=== PATIENT | female | born 1995 | race Caucasian/White ===

== ENCOUNTER 2017-03-12 01:05 | Emergency (ER) | payer OTHER ==
--- NOTE | 2017-03-12 02:04 | ED Physician Documentation ---
PD HPI CHEST PAIN - Stated complaint Stated Complaint: CHEST/L ARM PX - Chief complaint Chief Complaint: Cardiac - History obtained from History obtained from: Patient - History of Present Illness Timing - onset: How many minutes ago (90) Timing - onset during: Rest Timing - duration: Hours (1) Timing - details: Abrupt onset, Now resolved Pain level max: 4 Pain level now: 0 Quality: Pain Location: Substernal Radiation: Left upper extremity Improved by: Nothing Worsened by: No: Exertion, Inspiration, Eating, Movement, Palpation, Position Associated symptoms: No: Shortness of air, Diaphoresis, Nausea, Vomiting, Feeling faint / dizzy, General Weakness, Palpitations, Cough Similar symptoms before: Has not had sx before Recently seen: Not recently seen Review of Systems Constitutional: reports: Reviewed and negative Cardiac: reports: Chest pain / pressure. denies: Palpitations, Pedal edema, Calf pain Respiratory: reports: Reviewed and negative GI: reports: Reviewed and negative PD PAST MEDICAL HISTORY - Past Medical History Past Medical History: No - Past Surgical History Past Surgical History: No - Present Medications Home Medications: Ambulatory Orders Medication Instructions Recorded Confirmed Control 03/12/17 Paroxetine HCl [Paxil] 20 mg PO DAILY 03/12/17 03/12/17 - Allergies Allergies/Adverse Reactions: Allergies Allergy/AdvReac Type Severity Reaction Status Date / Time No Known Drug Allergies Allergy Verified 03/12/17 01:11 - Living Situation Living Arrangement: reports: At home PD ED PE NORMAL - Vitals Vital signs reviewed: Yes - General General: Alert and oriented X 3, No acute distress, Well developed/nourished - Cardiac Cardiac: RRR, No murmur, No gallop, No rub - Respiratory Respiratory: No respiratory distress, Clear bilaterally - Derm Derm: Normal color, Warm and dry - Extremities Extremities: No edema Results - Vitals Vitals: Vital Signs - 24 hr 03/12/17 03/12/17 03/12/17 01:09 02:27 03:26 Temperature 36.4 C L 36.5 C Heart Rate 86 61 60 Respiratory 18 15 18 Rate Blood Pressure 132/95 H 117/69 120/75 O2 Saturation 98 98 98 Oxygen O2 Source Room air - EKG (time done) No standard instances Rate: Rate (enter#) (73) Rhythm: NSR [place]: Normal Intervals: Normal NH QRS: Normal Ischemia: Normal ST segments - Labs Labs: Laboratory Tests 03/12/17 03/12/17 02:32 02:32 WBC 5.2 RBC 4.19 L Hgb 13.3 Hct 37.6 MCV 89.6 MCH 31.8 H MCHC 35.5 RDW 13.3 Plt Count 211 MPV 8.6 Neut # 2.6 Lymph # 1.6 Sunflower # 0.8 Eos # 0.1 Baso # 0.0 Absolute Nucleated RBC 0.00 Nucleated RBCs 0.0 Sodium 137 Potassium 3.4 L Chloride 104 Carbon Dioxide 26 Anion Gap 7.0 BUN 8 Creatinine 0.6 Estimated GFR (MDRD) 129 Glucose 106 H Calcium 8.6 PD MEDICAL DECISION MAKING - ED course Complexity details: reviewed results, re-evaluated patient, considered differential, d/w patient Departure - Departure Disposition: 01 Home, Self Care Clinical Impression: Chest pain, Palpitations Condition: Good Instructions: ED Chest Pain Atypical Unkn Cause, ED Palpitations Follow-Up: DEEPAK Singh [Provider Group] Discharge Date/Time: 03/12/17 03:43
[2017-03-12 02:46] LABS: BASOPHILS % (AUTO) 0.3 %; EOSINOPHILS # (AUTO) 0.1 10^3/uL (0.0-0.7); EOSINOPHILS % (AUTO) 2.5 %; HCT - HEMATOCRIT 37.6 % (37.0-47.0); HGB - HEMOGLOBIN 13.3 g/dL (12.0-16.0); LYMPHOCYTES # (AUTO) 1.6 10^3/uL (1.5-3.5); LYMPHOCYTES % (AUTO) 31.2 %; MEAN CORPUSCULAR HEMOGLOBIN 31.8 pg (27.0-31.0); MEAN CORPUSCULAR HGB CONC 35.5 g/dL (32.0-36.0); MEAN CORPUSCULAR VOLUME 89.6 fL (81.0-99.0); MEAN PLATELET VOLUME 8.6 fL (7.9-10.8); MONOCYTES # (AUTO) 0.8 10^3/uL (0.0-1.0); MONOCYTES % (AUTO) 15.3 %; NEUTROPHILS # (AUTO) 2.6 10^3/uL (1.5-6.6); NEUTROPHILS % (AUTO) 50.7 %; RED BLOOD COUNT 4.19 10^6/uL (4.20-5.40); RED CELL DISTRIBUTION WIDTH 13.3 % (12.0-15.0); UNCORRECTED WHITE BLOOD COUNT 5.2 x10^3/uL; WHITE BLOOD COUNT 5.2 x10^3/uL (4.8-10.8)
[2017-03-12 02:50] LABS: CALCIUM 8.6 mg/dL (8.5-10.3); CREATININE 0.6 mg/dL (0.4-1.0); POTASSIUM 3.4 mmol/L (3.5-5.0)
[2017-03-12 03:27] VITALS: BP 120/75
[2017-03-12] MEDS ORDERED: POTASSIUM BICARB 25 MEQ TABLET PO STA (03:33)
[2017-03-12] MEDS ORDERED: POTASSIUM BICARB 25 MEQ TABLET PO ONE (03:39)
== END 2017-03-12 03:43 | disposition home or self-care (01) ==
LOC: ED 01:05
DX: R07.89 Other chest pain (principal); R00.2 Palpitations
CPT/HCPCS: 36415; 80048; 85025; 93005; 93010; 99283; 99284; A9270

== ENCOUNTER 2017-03-14 13:49 | Emergency (ER) | payer OTHER ==
[2017-03-14] MEDS ORDERED: HYDROmorphone 1 MG/ML SYRINGE IVP STA (14:11)
[2017-03-14] MEDS ORDERED: ONDANSETRON 4 MG/2 ML VIAL IVP STA (14:11)
[2017-03-14] MEDS ORDERED: HYDROmorphone 1 MG/ML SYRINGE ONE (14:39)
[2017-03-14] MEDS ORDERED: ONDANSETRON 4 MG/2 ML VIAL ONE (14:40)
[2017-03-14] MEDS ORDERED: IOPAMIDOL-300 100 ML VIAL IVP ONE (15:29)
== END 2017-03-14 16:51 | disposition home or self-care (01) ==
DX: R10.30 Lower abdominal pain, unspecified (principal); Z98.890 Other specified postprocedural states
CPT/HCPCS: 74177; 80053; 81001; 81025; 83690; 85025; 96374; 96375; 99283; 99284; J1170; Q9967

== ENCOUNTER 2017-07-18 12:43 | Outpatient (CLI) | payer OTHER ==
--- NOTE | 2017-07-18 13:55 | MRI Report ---
EXAM: LEFT KNEE MRI WITHOUT CONTRAST EXAM DATE: 07/18/2017 01:26 PM. CLINICAL HISTORY: Left knee pain for 3 years COMPARISON: 10/23/2015. TECHNIQUE: Multiplanar, multisequence T1-weighted and fluid-sensitive sequences of the knee without c ontrast. Other: None. FINDINGS: Bones: No fractures or subluxations. No marrow edema. No bone lesions. Articular Cartilage: Unremarkable. Medial Meniscus: The medial meniscus is intact. Lateral Meniscus: The lateral meniscus is intact. Cruciate Ligaments: The anterior and posterior cruciate ligaments are intact. Collateral Ligaments: The medial collateral and lateral collateral ligamentous structures are intact. Tendons: The quadriceps, patellar, semimembranosus, and popliteus tendons are unremarkable. Musculature: No edema or fatty atrophy. Other: No effusion. No popliteal cyst. No loose bodies. The medial and lateral retinacula are intact . The subcutaneous tissues and fat pads are unremarkable. IMPRESSION: No MRI abnormalities in the knee. [facility]CUL[facility] SE[facility] Referring Provider Line: [phone] SITE ID: [id number]
== END 2017-07-18 12:44 | disposition home or self-care (01) ==
LOC: DI 12:43
PROVIDERS: ATTEND Orthopaedic Surgery
DX: M25.562 Pain in left knee (principal)

== ENCOUNTER 2018-01-11 19:07 | Emergency (ER) | payer OTHER ==
[2018-01-11 19:23] VITALS: BP 128/90
--- NOTE | 2018-01-11 20:59 | ED Physician Documentation ---
History of Present Illness - Stated complaint Stated Complaint: LEG PX - Chief complaint Chief Complaint: Ext Problem - History obtained from History obtained from: Patient - History of Present Illness Timing: How many weeks ago (2) Pain level max: 10 Pain level now: 9 Improved by: rest Worsened by: weight-bearing/ambulation - Additonal information Additional information: c/o worsening of BLE pain she says are c/w previous "zeng splints" (per patient) . Denies recent trauma (h/o injury 2 years ago), but c/o 2 weeks of gradually worsening bilateral zeng (anterior tibial) pain, gradually spreading to involve both knees and hips with episodic "locking" of knees and hips. Has appointment with [facility] medical 01/18 but pain was inadequately controlled with ibuprofen today Review of Systems Skin: denies: Rash Musculoskeletal: reports: Extremity pain, Joint pain, Pain with weight bearing. denies: Neck pain, Extremity swelling, Joint swelling Neurologic: denies: Focal weakness, Numbness PD PAST MEDICAL HISTORY - Past Medical History Past Medical History: Yes GI: None TEAM ASSISTANT: Endometriosis : None Psych: Anxiety Musculoskeletal: Other - Past Surgical History Past Surgical History: Yes General: Colonoscopy /TEAM ASSISTANT: Endometrial ablation - Present Medications Home Medications: Ambulatory Orders Medication Instructions Recorded Confirmed HYDROcod/ACETAM 5/325 [[place] 5/325] 1 - 2 ea PO Q6H PRN #15 tablet 01/11/18 Sertraline HCl [Zoloft] 1 tab PO DAILY 01/11/18 01/11/18 predniSONE [Prednisone] 40 mg PO DAILY #6 tablet 01/11/18 - Allergies Allergies/Adverse Reactions: Allergies Allergy/AdvReac Type Severity Reaction Status Date / Time No Known Drug Allergies Allergy Verified 01/11/18 19:23 - Social History Does the pt smoke?: No Smoking Status: Never smoker Does the pt drink ETOH?: No Does the pt have substance abuse?: No - Immunizations Immunizations are current?: Yes - POLST Patient has POLST: No PD ED PE NORMAL - Vitals Vital signs reviewed: Yes - General General: Alert and oriented X 3, No acute distress, Well developed/nourished - Derm Derm: Normal color, Warm and dry, No rash - Extremities Extremities: No deformity, No tenderness to palpate, Normal ROM s pain, No edema Results - Vitals Vitals: Vital Signs - 24 hr 01/11/18 19:20 Temperature 36.7 C Heart Rate 72 Respiratory 16 Rate Blood Pressure 128/90 H O2 Saturation 97 Oxygen O2 Source Room air PD MEDICAL DECISION MAKING - ED course Complexity details: considered differential, d/w patient Departure - Departure Disposition: 01 Home, Self Care Clinical Impression: Pain of lower extremity Qualifiers: Laterality: bilateral Qualified Code(s): M79.604 - Pain in right leg Condition: Good Instructions: Splints Zeng Follow-Up: SANDRA MORALES MD [Primary Care Provider] - (Call to arrange for next available appointment) Prescriptions: HYDROcod/ACETAM 5/325 [[place] 5/325] 1 - 2 ea PO Q6H PRN #15 tablet PRN Reason: Pain predniSONE [Prednisone] 40 mg PO DAILY #6 tablet Comments: You can continue to take ibuprofen while taking the steroid (prednisone), but in reduced doses (400 mg by mouth every 6 hours). When you have completed the prednisone, you can increase the ibuprofen to 600mg-800mg by mouth every 6 hours as needed. You can take the vicodin (hydrocodone/aceteminophen) every 6 hours as needed for severe pain, but do not drive or work for a minimum of six hours after taking this medication. Do not take any tylenol/acetaminophen (or products that contain this medication) while taking the hydrocodone/ acetaminophen. Discharge Date/Time: 01/11/18 21:29
[2018-01-11] MEDS ORDERED: predniSONE 20 MG TABLET PO STA (21:15)
[2018-01-11] MEDS ORDERED: HYDROcod/ACET 5/325 Prepack 6 PO STA (21:17)
== END 2018-01-11 21:29 | disposition home or self-care (01) ==
LOC: ED 19:07
DX: M79.604 Pain in right leg (principal)
CPT/HCPCS: 99283; J7512

== ENCOUNTER 2018-04-09 19:03 | Emergency (ER) | payer OTHER ==
[2018-04-09 19:32] LABS: BILIRUBIN,URINE NEGATIVE (NEGATIVE); GLUCOSE, URINE (UA) NEGATIVE (NEGATIVE); KETONES,URINE (UA) NEGATIVE (NEGATIVE); LEUKOCYTE ESTERASE, URINE NEGATIVE (NEGATIVE); NITRITE,URINE NEGATIVE (NEGATIVE); OCCULT BLOOD,URINE NEGATIVE (NEGATIVE); PROTEIN,URINE NEGATIVE (NEGATIVE); UROBILINOGEN,URINE 0.2 (NORMAL) E.U./dL (NORMAL)
[2018-04-09 19:36] LABS: HCG UR QUAL NEGATIVE
[2018-04-09 19:39] LABS: AMORPHOUS SEDIMENT,UR Marked /LPF; BACTERIA,URINE None Seen /HPF (None Seen); CLARITY,URINE CLOUDY (CLEAR); RBC,URINE None Seen /HPF (0-5); SQUAMOUS EPITHELIAL CELL,UR NONE SEEN (<= Few)
[2018-04-09] MEDS ORDERED: LORazepam 0.5 MG TABLET PO STA (19:46)
--- NOTE | 2018-04-09 19:48 | ED Physician Documentation ---
PD HPI ABD PAIN - Stated complaint Stated Complaint: FEMALE - Chief complaint Chief Complaint: Abd Pain - History obtained from History obtained from: Patient - History of Present Illness Timing - onset: Other (She turned 23 a few nights ago and did drink heavily. About that same day she developed pelvic pain. She has a history of endometriosis. Its lower pelvic pain that does not lateralize and she feels bloated. She had a Mirena IUD placed in November. Starting today she has had 2 episodes of a large volume of white to pink discharge. She has had 2 partners in the last couple of months.) Review of Systems Constitutional: denies: Fever, Chills GI: reports: Abdominal Pain, Nausea ("from anxiety"). 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 : None Psych: Anxiety Musculoskeletal: Other - Past Surgical History Past Surgical History: Yes General: Colonoscopy /SKILLS AUDITOR: Endometrial ablation, Other - Present Medications Home Medications: Ambulatory Orders Medication Instructions Recorded Confirmed HYDROcod/ACETAM 5/325 [[place] 5/325] 1 - 2 ea PO Q6H PRN #15 tablet 01/11/18 Sertraline HCl [Zoloft] 1 tab PO DAILY 01/11/18 01/11/18 predniSONE [Prednisone] 40 mg PO DAILY #6 tablet 01/11/18 - Allergies Allergies/Adverse Reactions: Allergies Allergy/AdvReac Type Severity Reaction Status Date / Time No Known Drug Allergies Allergy Verified 04/09/18 19:20 - Social History Does the pt smoke?: No Smoking Status: Never smoker Does the pt drink ETOH?: No Does the pt have substance abuse?: No - Immunizations Immunizations are current?: Yes - POLST Patient has POLST: No PD ED PE NORMAL - Vitals Vital signs reviewed: Yes - General General: Alert and oriented X 3, No acute distress - Abdomen Abdomen: Normal bowel sounds, Soft, Non tender - Female 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 YELLOW Urine Clarity CLOUDY Urine pH 7.0 Ur Specific [place] 1.020 1.020 Urine Protein NEGATIVE Urine Glucose (UA) NEGATIVE Urine Ketones NEGATIVE Urine Occult Blood NEGATIVE Urine Nitrite NEGATIVE Urine Bilirubin NEGATIVE Urine Urobilinogen 0.2 (NORMAL) Ur Leukocyte Esterase NEGATIVE Urine RBC None Seen Urine WBC 0-3 Ur Squamous Epith Cells NONE SEEN Amorphous Sediment Marked Urine Bacteria None Seen Ur Microscopic Review INDICATED Urine Culture Comments NOT INDICATED Urine HCG, Qual NEGATIVE PD MEDICAL DECISION MAKING - ED course ED course: 23-year-old woman with vaginal discharge and pelvic pain but no pelvic tenderness. Initial swabs are negative. We discussed potentially presumptive treatment for STDs there is no evidence of PID and after discussion we will wait. Departure - Departure Disposition: 01 Home, Self Care Clinical Impression: Vaginal discharge Condition: Good Record reviewed to determine appropriate education?: Yes Instructions: ED Pelvic Pain [facility] Comments: We should call in 2-3 days if STD tests are positive. If not better follow-up with your cob sawyer. Return for new or worsening symptoms.
[2018-04-09 21:02] VITALS: BP 105/70
== END 2018-04-09 21:03 | disposition home or self-care (01) ==
LOC: ED 19:03
DX: N89.8 Other specified noninflammatory disorders of vagina (principal); Z97.5 Presence of (intrauterine) contraceptive device
CPT/HCPCS: 81001; 81025; 87210; 87491; 87591; 99283; A9270; 81003; 87086

== ENCOUNTER 2018-04-11 17:24 | Emergency (ER) | payer OTHER ==
[2018-04-11 18:35] LABS: BILIRUBIN,URINE NEGATIVE (NEGATIVE); GLUCOSE, URINE (UA) NEGATIVE (NEGATIVE); KETONES,URINE (UA) NEGATIVE (NEGATIVE); LEUKOCYTE ESTERASE, URINE NEGATIVE (NEGATIVE); NITRITE,URINE NEGATIVE (NEGATIVE); OCCULT BLOOD,URINE NEGATIVE (NEGATIVE); PROTEIN,URINE NEGATIVE (NEGATIVE); UROBILINOGEN,URINE 1 (NORMAL) E.U./dL (NORMAL)
--- NOTE | 2018-04-11 18:39 | ED Physician Documentation ---
PD HPI ABD PAIN - Stated complaint Stated Complaint: ABD PX - Chief complaint Chief Complaint: Abd Pain - History obtained from History obtained from: Patient - History of Present Illness Timing - onset: Other (She was seen by me a couple of nights ago for pelvic pain and vaginal discharge, nothing really came of the swabs and in the interim her gonorrhea and chlamydia test came back negative. She continues to have vaginal discharge and migratory pelvic pain. [place] was referred for a pelvic ultrasound but it sounds like the delay would be too much. She does have pinkish vaginal discharge now whereas it was playing white the other night.) Review of Systems Constitutional: denies: Fever, Chills GI: reports: Abdominal Pain. 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 Psych: Anxiety Musculoskeletal: Other - Past Surgical History Past Surgical History: Yes General: Colonoscopy /AGENCY RECRUITER: Endometrial ablation, Other - Present Medications Home Medications: Ambulatory Orders Medication Instructions Recorded Confirmed Sertraline HCl [Zoloft] 1 tab PO DAILY 01/11/18 01/11/18 Fluconazole [Diflucan] 150 mg PO ONCE #1 tablet 04/11/18 Metronidazole [Flagyl] 500 mg PO BID #14 tablet 04/11/18 - Allergies Allergies/Adverse Reactions: Allergies Allergy/AdvReac Type Severity Reaction Status Date / Time No Known Drug Allergies Allergy Verified 04/09/18 19:20 - Social History Does the pt smoke?: No Smoking Status: Never smoker Does the pt drink ETOH?: No Does the pt have substance abuse?: No - Immunizations Immunizations are current?: Yes - POLST Patient has POLST: No PD ED PE NORMAL - Vitals Vital signs reviewed: Yes - General General: Alert and oriented X 3, No acute distress - Abdomen Abdomen: Normal bowel sounds, Soft, Other (Mild lower abdominal tenderness) - Female Female : Deferred (As she had a pelvic exam 2 nights ago) - Neuro Neuro: Alert and oriented X 3, Normal speech Results - Vitals Vitals: Vital Signs - 24 hr 04/11/18 04/11/18 17:34 19:30 Temperature 36.6 C Heart Rate 65 62 Respiratory 16 18 Rate Blood Pressure 112/71 113/67 O2 Saturation 99 98 Oxygen O2 Source Room air - Labs Labs: Laboratory Tests 04/11/18 18:10 Urine Color LT. YELLOW Urine Clarity CLOUDY Urine pH 8.0 H Ur Specific [place] 1.020 Urine Protein NEGATIVE Urine Glucose (UA) NEGATIVE Urine Ketones NEGATIVE Urine Occult Blood NEGATIVE Urine Nitrite NEGATIVE Urine Bilirubin NEGATIVE Urine Urobilinogen 1 (NORMAL) Ur Leukocyte Esterase NEGATIVE Urine RBC None Seen Urine WBC 0-3 Ur Squamous Epith Cells NONE SEEN Amorphous Sediment Marked Urine Bacteria None Seen Ur Microscopic Review INDICATED Urine Culture Comments NOT INDICATED Urine HCG, Qual NEGATIVE - Rads (name of study) pelvic sono Radiology: See rad report (normal) PD MEDICAL DECISION MAKING - ED course ED course: 23-year-old with vaginitis of unclear etiology that has not improved with conservative treatment and referred for an outpatient Pelvic ultrasound that she has been unable to schedule in a timely manner. The ultrasound here was negative and we will trial some Diflucan and Flagyl for the vaginitis. Note made the gonorrhea and Chlamydia from a few days ago was negative. Departure - Departure Disposition: 01 Home, Self Care Clinical Impression: Pelvic pain, Vaginal discharge Condition: Good Record reviewed to determine appropriate education?: Yes Instructions: ED Vaginosis Bacterial Prescriptions: Fluconazole [Diflucan] 150 mg PO ONCE #1 tablet Metronidazole [Flagyl] 500 mg PO BID #14 tablet Comments: [place] return if worse. Discharge Date/Time: 04/11/18 21:05
[2018-04-11] MEDS ORDERED: HYDROcod/ACETAM 5/325 MG TABLET PO STA (18:54)
[2018-04-11 18:55] LABS: CLARITY,URINE CLOUDY (CLEAR); HCG UR QUAL NEGATIVE
[2018-04-11 18:56] LABS: AMORPHOUS SEDIMENT,UR Marked /LPF; BACTERIA,URINE None Seen /HPF (None Seen); RBC,URINE None Seen /HPF (0-5); SQUAMOUS EPITHELIAL CELL,UR NONE SEEN (<= Few)
[2018-04-11 20:06] VITALS: BP 113/67
--- NOTE | 2018-04-11 20:49 | Ultrasound Report ---
EXAM: PELVIC ULTRASOUND EXAM DATE: 04/11/2018 08:39 PM. CLINICAL HISTORY: Pelvic pain. COMPARISON: 03/14/2017 CT. TECHNIQUE: Realtime transabdominal pelvic scan performed to identify the uterus and adnexa and as an overview of other pelvic structures, followed by transvaginal scan to provide greater detail of the u terus and adnexa, with static image documentation. FINDINGS: Uterus: 8.2 x 3 x 5 cm, volume 67.2 cc. Anteverted position. Normal overall size and echotexture. Masses: None. Endometrium: 3 mm. No hypervascular nodules. Intrauterine device position centrally within the uterin e cavity. Cervix: Unremarkable. Right Ovary: 2 x 2.7 x 2.6 cm, volume 7.4 cc. Normal echotexture and blood flow. Left Ovary: 2.4 x 1.2 x 1.3 cm, volume 1.8 cc. Normal echotexture and blood flow. Free Fluid: None. Other: None. IMPRESSION: Normal pelvic ultrasound noting satisfactory IUD position. [facility] Referring Provider Line: [phone] SITE ID: [id number]
[2018-04-11] MEDS ORDERED: FLUCONAZOLE 100 MG TABLET PO STA (20:58)
[2018-04-11] MEDS ORDERED: metroNIDAZOLE 250 MG TABLET PO STA (20:58)
== END 2018-04-11 21:05 | disposition home or self-care (01) ==
LOC: ED 17:24
DX: R10.2 Pelvic and perineal pain (principal); N89.8 Other specified noninflammatory disorders of vagina
CPT/HCPCS: 76830; 76856; 81001; 81025; 93975; 99283; A9270; 81003; 87086

== ENCOUNTER 2018-04-24 10:55 | Emergency (ER) | payer OTHER ==
[2018-04-24] MEDS ORDERED: ACETAMINOPHEN 325 MG TABLET PO STA (11:53)
[2018-04-24] MEDS ORDERED: ONDANSETRON ODT 4 MG TABLET TL STA (11:53)
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
--- NOTE | 2018-04-24 12:48 | CT Report ---
Procedure Date: 04/24/2018 Accession Number: [id number] / [id number] Procedure: CT - Head W/O CPT Code: FULL RESULT: EXAM: CT HEAD EXAM DATE: 04/24/2018 12:20 PM. CLINICAL HISTORY: Head trauma. Right temporal contusion. Confusion. COMPARISON: None. TECHNIQUE: Multiaxial CT images were obtained from the foramen magnum to the vertex. Reformats: Coronal. IV contrast: None. In accordance with CT protocol optimization, one or more of the following dose reduction techniques were utilized for this exam: automated exposure control, adjustment of mA and/or KV based on patient size, or use of iterative reconstructive technique. FINDINGS: Parenchyma: No intraparenchymal hemorrhage. No evidence of mass, midline shift, or CT findings of acute infarction. Goel-white differentiation is distinct. Extraaxial Spaces: Normal for age. No subdural or epidural collections identified. Ventricles: Normal in size and position. Sinuses and Orbits: Imaged paranasal sinuses, orbits, and mastoids show no significant abnormality. Bones: No evidence of fracture or calvarial defect. Other: None. IMPRESSION: Normal head CT. [facility]
--- NOTE | 2018-04-24 12:51 | CT Report ---
Procedure Date: 04/24/2018 Accession Number: [id number] / [id number] Procedure: CT - Cervical Spine W/O CPT Code: FULL RESULT: EXAM: CT CERVICAL SPINE WITHOUT CONTRAST DATE: 04/24/2018 12:20 PM. HISTORY: Head injury neck pain. COMPARISONS: None. TECHNIQUE: Thin-section axial images were acquired of the cervical spine without contrast. Post-processing: Coronal and sagittal reformats. Other: None. In accordance with CT protocol optimization, one or more of the following dose reduction techniques were utilized for this exam: automated exposure control, adjustment of mA and/or KV based on patient size, or use of iterative reconstructive technique. FINDINGS: Alignment: No spondylolisthesis. Mild reversal of the normal cervical lordosis centered at C5. Bones: No fracture or bone lesion. Interspace Levels/Facets: Normal. Other: The paravertebral and prevertebral soft tissues are unremarkable. The lung apices are clear. IMPRESSION: Normal cervical spine CT. [facility]
[2018-04-24 13:30] VITALS: BP 108/60
== END 2018-04-24 13:30 | disposition home or self-care (01) ==
LOC: ED 10:55
DX: S06.0X1A Concussion with loss of consciousness of 30 minutes or less, initial encounter (principal); W20.8XXA Other cause of strike by thrown, projected or falling object, initial encounter; Y92.139 Unspecified place military base as the place of occurrence of the external cause; Y99.1 Military activity
CPT/HCPCS: 70450; 72125; 99283; 99284; A9270; Q0162

== ENCOUNTER 2018-05-29 21:42 | Emergency (ER) | payer OTHER ==
[2018-05-29 23:29] LABS: BILIRUBIN,URINE NEGATIVE (NEGATIVE); GLUCOSE, URINE (UA) NEGATIVE (NEGATIVE); KETONES,URINE (UA) NEGATIVE (NEGATIVE); LEUKOCYTE ESTERASE, URINE NEGATIVE (NEGATIVE); NITRITE,URINE NEGATIVE (NEGATIVE); OCCULT BLOOD,URINE NEGATIVE (NEGATIVE); PH,URINE 6.5 PH (5.0-7.5); PROTEIN,URINE NEGATIVE (NEGATIVE); UROBILINOGEN,URINE 0.2 (NORMAL) E.U./dL (NORMAL)
[2018-05-29 23:32] LABS: CLARITY,URINE CLEAR (CLEAR); HCG UR QUAL NEGATIVE
[2018-05-30] MEDS ORDERED: KETOROLAC 60 MG/2 ML VIAL IVP STA (00:20)
--- NOTE | 2018-05-30 00:24 | ED Physician Documentation ---
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 She states that at the time this started she was sitting on the couch watching television doing absolutely nothing and severe pain developed in the right lower quadrant with a throbbing-like sensation. She has had some nausea with this and is quite uncomfortable. She did have investigation with ultrasound for position of her IUD about 3 weeks ago and this is when she was notified of the 6 cm right ovarian cyst. Review of Systems Constitutional: denies: Fever, Chills, Myalgias Eyes: denies: Decreased vision Ears: denies: Ear pain Nose: denies: Congestion Throat: denies: Sore throat Cardiac: denies: Chest pain / pressure Respiratory: denies: Dyspnea, Cough GI: reports: Abdominal Pain, Nausea : reports: Discharge. denies: Dysuria, Frequency Skin: denies: Rash Musculoskeletal: denies: Neck pain, Back pain, Extremity pain Neurologic: denies: Generalized weakness, Focal weakness, Numbness PD PAST MEDICAL HISTORY - Past Medical History Past Medical History: Yes GI: None VOCATIONAL HORTICULTURE INSTRUCTOR: Endometriosis : None Psych: Anxiety Musculoskeletal: Other - Past Surgical History Past Surgical History: Yes General: Colonoscopy /VOCATIONAL HORTICULTURE INSTRUCTOR: Endometrial ablation, Other - Present Medications Home Medications: Ambulatory Orders Medication Instructions Recorded Confirmed Sertraline HCl [Zoloft] 1 tab PO DAILY 01/11/18 01/11/18 Iud 04/24/18 Ondansetron Odt [Zofran] 4 mg TL Q6H PRN #10 tablet 04/24/18 HYDROcod/ACETAM 5/325 [[place] 5/325] 1 - 2 ea PO Q6H PRN #15 tablet 05/30/18 - Allergies Allergies/Adverse Reactions: Allergies Allergy/AdvReac Type Severity Reaction Status Date / Time No Known Drug Allergies Allergy Verified 04/24/18 11:03 - Social History Does the pt smoke?: No Smoking Status: Never smoker Does the pt drink ETOH?: No Does the pt have substance abuse?: No - Immunizations Immunizations are current?: Yes - POLST Patient has POLST: No PD ED PE NORMAL - Vitals Vital signs reviewed: Yes (normal ) - General General: Alert and oriented X 3, Well developed/nourished, Other (The patient appears anxious and in pain ) - HEENT HEENT: Atraumatic, PERRL, EOMI - Neck Neck: Supple, no meningeal sign - Cardiac Cardiac: RRR, No murmur - Respiratory Respiratory: No respiratory distress, Clear bilaterally - Abdomen Abdomen: Soft, Other (RLQ tenderness without garding or rebound tenderness) - Back Back: No CVA TTP, No spinal TTP - Derm Derm: Normal color, Warm and dry, No rash - Extremities Extremities: No deformity, No edema - Neuro Neuro: Alert and oriented X 3, 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, No motor deficit, No sensory deficit, Normal speech Eye Opening: Spontaneous Motor: Obeys Commands Verbal: Oriented GCS Score: 15 - Psych Psych: Normal mood, Normal affect Results - Vitals Vitals: Vital Signs - 24 hr 05/29/18 05/30/18 05/30/18 21:59 01:53 03:00 Temperature 37.3 C 36.8 C 37.6 C H Heart Rate 72 62 70 Respiratory 18 16 16 Rate Blood Pressure 118/72 124/78 115/61 O2 Saturation 98 97 98 Oxygen O2 Source Room air - Labs Labs: Laboratory Tests 05/29/18 05/30/18 05/30/18 22:10 00:20 00:20 WBC 7.9 RBC 4.34 Hgb 13.7 Hct 39.8 MCV 91.8 MCH 31.5 H MCHC 34.3 RDW 14.3 Plt Count 222 MPV 8.3 Neut # (Auto) 4.4 Lymph # (Auto) 2.5 [place] # (Auto) 0.6 Eos # (Auto) 0.3 Baso # (Auto) 0.0 Absolute Nucleated RBC 0.00 Nucleated RBC % 0.0 Sodium 136 Potassium 3.9 Chloride 104 Carbon Dioxide 26 Anion Gap 6.0 BUN 12 Creatinine 0.6 Estimated GFR (MDRD) 126 Glucose 93 Calcium 9.3 Total Bilirubin 0.5 AST 18 ALT 20 Alkaline Phosphatase 55 Total Protein 7.0 Albumin 4.6 Globulin 2.4 Albumin/Globulin Ratio 1.9 Lipase 34 Urine Color YELLOW Urine Clarity CLEAR Urine pH 6.5 Ur Specific [place] 1.020 Urine Protein NEGATIVE Urine Glucose (UA) NEGATIVE Urine Ketones NEGATIVE Urine Occult Blood NEGATIVE Urine Nitrite NEGATIVE Urine Bilirubin NEGATIVE Urine Urobilinogen 0.2 (NORMAL) Ur Leukocyte Esterase NEGATIVE Ur Microscopic Review NOT INDICATED Urine Culture Comments NOT INDICATED Urine HCG, Qual NEGATIVE - Rads (name of study) pelvic ultrasound Radiology: Prelim report reviewed (Impression: 1. Small right ovarian cyst measuring 1.4 x 1.1 x 2.1 cm no torsion seen. IUD in expected position), EMP read indepedently, See rad report PD MEDICAL DECISION MAKING - ED course Complexity details: reviewed old records, reviewed results, re-evaluated patient , considered differential, d/w patient, d/w family ED course: 23-year-old female with acute right lower quadrant abdominal pain appears to have a small right ovarian cyst. She has improvement in her pain with the use of IV dilaudid and not with toradal. On initial evaluation there was concern for torsion by her presentation and this is effectively ruled out with the ultrasound. Appendicitis was considered but not likely based on the patient's history exam and lack of lab findings. She is treated for ovarian cyst. She has murina in place and the timing of her cycle is unknown. - Sepsis Event Vital Signs: Vital Signs - 24 hr 05/29/18 05/30/18 05/30/18 21:59 01:53 03:00 Temperature 37.3 C 36.8 C 37.6 C H Heart Rate 72 62 70 Respiratory 18 16 16 Rate Blood Pressure 118/72 124/78 115/61 O2 Saturation 98 97 98 Oxygen O2 Source Room air Departure - Departure Disposition: 01 Home, Self Care Clinical Impression: Ovarian cyst, right Condition: Stable Instructions: ED Cyst Ovarian Follow-Up: [facility] [Provider Group] Prescriptions: HYDROcod/ACETAM 5/325 [[place] 5/325] 1 - 2 ea PO Q6H PRN #15 tablet PRN Reason: Pain Discharge Date/Time: 05/30/18 03:16
[2018-05-30 00:34] LABS: BASOPHILS % (AUTO) 0.3 %; EOSINOPHILS # (AUTO) 0.3 10^3/uL (0.0-0.7); EOSINOPHILS % (AUTO) 4.4 %; HGB - HEMOGLOBIN 13.7 g/dL (12.0-16.0); LYMPHOCYTES # (AUTO) 2.5 10^3/uL (1.5-3.5); LYMPHOCYTES % (AUTO) 31.4 %; MEAN CORPUSCULAR HEMOGLOBIN 31.5 pg (27.0-31.0); MEAN CORPUSCULAR HGB CONC 34.3 g/dL (32.0-36.0); MEAN CORPUSCULAR VOLUME 91.8 fL (81.0-99.0); MEAN PLATELET VOLUME 8.3 fL (7.9-10.8); MONOCYTES # (AUTO) 0.6 10^3/uL (0.0-1.0); MONOCYTES % (AUTO) 7.3 %; NEUTROPHILS # (AUTO) 4.4 10^3/uL (1.5-6.6); NEUTROPHILS % (AUTO) 56.6 %; PLT - PLATELET COUNT 222 10^3/uL (130-450); RED BLOOD COUNT 4.34 10^6/uL (4.20-5.40); RED CELL DISTRIBUTION WIDTH 14.3 % (12.0-15.0); WHITE BLOOD COUNT 7.9 x10^3/uL (4.8-10.8)
[2018-05-30 00:47] LABS: ALBUMIN 4.6 g/dL (3.2-5.5); ALBUMIN/GLOBULIN RATIO 1.9 (1.0-2.2); BILIRUBIN,TOTAL 0.5 mg/dL (0.2-1.0); CALCIUM 9.3 mg/dL (8.5-10.3); CREATININE 0.6 mg/dL (0.4-1.0)
[2018-05-30] MEDS ORDERED: HYDROmorphone 1 MG/ML CARPUJECT IVP STA (01:52)
[2018-05-30] MEDS ORDERED: ONDANSETRON 4 MG/2 ML VIAL IVP STA (01:52)
--- NOTE | 2018-05-30 02:21 | Ultrasound Report ---
Procedure Date: 05/30/2018 Accession Number: [id number] / [id number] Procedure: US - Pelvic w/Transvaginal CPT Code: FULL RESULT: EXAM: PELVIC ULTRASOUND EXAM DATE: 05/30/2018 01:42 AM. CLINICAL HISTORY: R sided pain with 6cm cyst by history torsion?. COMPARISON: 04/11/2018. TECHNIQUE: Realtime transabdominal pelvic scan performed to identify the uterus and adnexa and as an overview of other pelvic structures, followed by transvaginal scan to provide greater detail of the uterus and adnexa, with static image documentation. FINDINGS: Uterus: 8.4 x 3.8 x 5.8 cm, volume 96 cc. Anteverted position. Normal overall size and echotexture. Masses: None. Endometrium: 5 mm. IUD in expected position. Cervix: Unremarkable. Right Ovary: 3.8 x 2.4 x 3.1 cm, volume 15 cc. Small cyst measuring 1.4 x 1.1 x 2.1 cm. Otherwise normal echotexture and blood flow. Left Ovary: 3.2 x 2.4 x 3.3 cm, volume 13 cc. Normal echotexture and blood flow. Free Fluid: None. Other: None. IMPRESSION: 1. Small right ovarian cyst measuring 1.4 x 1.1 x 2.1 cm. No torsion seen. 2. IUD in expected position. RADIA
[2018-05-30 03:01] VITALS: BP 115/61
[2018-05-30] MEDS ORDERED: HYDROcod/ACET 5/325 Prepack 4 PO STA (03:10)
== END 2018-05-30 03:16 | disposition home or self-care (01) ==
LOC: ED 21:42
DX: N83.201 Unspecified ovarian cyst, right side (principal); Z97.5 Presence of (intrauterine) contraceptive device
CPT/HCPCS: 36415; 76830; 76856; 80053; 81003; 81025; 83690; 85025; 96374; 96375; 99283; 99284; J1170; 81001; 87086

== ENCOUNTER 2018-08-05 22:25 | Emergency (ER) | payer OTHER ==
--- NOTE | 2018-08-05 22:47 | ED Physician Documentation ---
History of Present Illness - Stated complaint Stated Complaint: CHEST PAIN/POSS ALLERGIC REACTION - History obtained from History obtained from: Patient - History of Present Illness Timing: Enter time (21:00) Improved by: no ameliorating factors Worsened by: no apparent exacerbating factors or inciting event/exposure - Additonal information Additional information: c/o sudden onset of diffuse pruritis 9 PM tonight with rash on extremities. She took 50mg benadryl with improvement in rash but no relief from pruritis, subsequently developed chest tightness and shortness of breath. denies h/o similar symptoms Review of Systems Constitutional: denies: Fever, Chills, Sweats Cardiac: reports: Chest pain / pressure. denies: Palpitations, Pedal edema Respiratory: reports: Dyspnea. 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 : None Psych: Anxiety Musculoskeletal: Other Derm: Other Other Past Medical History: Acne - Past Surgical History Past Surgical History: Yes General: Colonoscopy /EDITOR MAGAZINE: Endometrial ablation, Other - Present Medications Home Medications: Ambulatory Orders Medication Instructions Recorded Confirmed Iud 04/24/18 LORazepam [Lorazepam] 1 mg PO TID PRN #14 tablet 08/05/18 Minocycline HCl 1 cap PO BID 08/05/18 08/05/18 Venlafaxine ER [Effexor ER] 1 cap PO BID 08/05/18 08/05/18 hydrOXYzine PAMOATE [Vistaril] 25 mg PO Q6H PRN #14 capsule 08/05/18 - Allergies Allergies/Adverse Reactions: Allergies Allergy/AdvReac Type Severity Reaction Status Date / Time No Known Drug Allergies Allergy Verified 08/05/18 22:39 - Social History Does the pt smoke?: No Smoking Status: Never smoker Does the pt drink ETOH?: No Does the pt have substance abuse?: No - Immunizations Immunizations are current?: Yes - POLST Patient has POLST: No PD ED PE NORMAL - Vitals Vital signs reviewed: Yes - General General: Alert and oriented X 3, Well developed/nourished, Other (appears anxious. occasionally scratches arms, legs. she is AAOx3, cooperative, and polite) - HEENT HEENT: PERRL, Moist mucous membranes - Cardiac Cardiac: RRR, No murmur - Respiratory Respiratory: No respiratory distress, Clear bilaterally - Derm Derm: Other (faint erythema RLE (distal pre-tibial surface) with sharp margin, 2-3 cm diameter. faint erythema LUE anterior mid-bicep region with no distinct margins) Results - Vitals Vitals: Vital Signs - 24 hr 08/05/18 08/05/18 22:25 23:26 Temperature 36.0 C L Heart Rate 83 67 Respiratory 16 17 Rate Blood Pressure 126/93 H 125/85 H O2 Saturation 100 100 Oxygen O2 Source Room air PD MEDICAL DECISION MAKING - ED course Complexity details: re-evaluated patient, considered differential, d/w patient ED course: given atarax and ativan PO and on reevaluation, she appears calm, comfortable, no longer scratching. She reports resolution of her itching and anxiety, reports mild drowsiness. - Sepsis Event Vital Signs: Vital Signs - 24 hr 08/05/18 08/05/18 22:25 23:26 Temperature 36.0 C L Heart Rate 83 67 Respiratory 16 17 Rate Blood Pressure 126/93 H 125/85 H O2 Saturation 100 100 Oxygen O2 Source Room air Departure - Departure Disposition: 01 Home, Self Care Clinical Impression: Allergic reaction, Anxiety Condition: Good Instructions: ED Allergic Reaction General Other, ED Stress React Follow-Up: [facility] [Provider Group] Prescriptions: hydrOXYzine PAMOATE [Vistaril] 25 mg PO Q6H PRN #14 capsule PRN Reason: Allergy Symptoms LORazepam [Lorazepam] 1 mg PO TID PRN #14 tablet PRN Reason: Anxiety Discharge Date/Time: 08/05/18 23:35
[2018-08-05] MEDS ORDERED: hydrOXYzine PAMOATE 25 MG CAPSULE PO STA (22:48)
[2018-08-05] MEDS ORDERED: LORazepam 0.5 MG TABLET PO STA (22:48)
[2018-08-05 23:27] VITALS: BP 125/85
== END 2018-08-05 23:35 | disposition home or self-care (01) ==
LOC: ED 22:25
DX: T78.40XA Allergy, unspecified, initial encounter (principal); F41.9 Anxiety disorder, unspecified; X58.XXXA Exposure to other specified factors, initial encounter
CPT/HCPCS: 99283; A9270

== ENCOUNTER 2018-10-01 17:07 | Emergency (ER) | payer OTHER ==
[2018-10-01] MEDS ORDERED: KETOROLAC 60 MG/2 ML VIAL IM STA (19:05)
[2018-10-01] MEDS ORDERED: diphenhydrAMINE INJ 50 MG/ML VIAL IM STA (19:05)
[2018-10-01] MEDS ORDERED: PROMETHAZINE 25 MG/1 ML VIAL IM STA (19:05)
--- NOTE | 2018-10-01 19:10 | ED Physician Documentation ---
History of Present Illness - Stated complaint Stated Complaint: MIGRAINE - Chief complaint Chief Complaint: General - History obtained from History obtained from: Patient, Friend - History of Present Illness Timing: Today Pain level max: 8 Pain level now: 8 Improved by: nothing Worsened by: light, sound - Additonal information Additional information: 23-year-old female with a long-standing history of migraine headaches presents with her usual migraine headache that started at noon today. Not relieved by Excedrin. No vomiting but has had nausea. Has photophobia as well. 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 Psych: Anxiety Musculoskeletal: Other Derm: Other - Past Surgical History Past Surgical History: Yes General: Colonoscopy /INVESTMENT SALES ASSISTANT: Endometrial ablation, Other - Present Medications Home Medications: Ambulatory Orders Medication Instructions Recorded Confirmed Iud 04/24/18 LORazepam [Lorazepam] 1 mg PO TID PRN #14 tablet 08/05/18 Minocycline HCl 1 cap PO BID 08/05/18 08/05/18 Venlafaxine ER [Effexor ER] 1 cap PO BID 08/05/18 08/05/18 hydrOXYzine PAMOATE [Vistaril] 25 mg PO Q6H PRN #14 capsule 08/05/18 - Allergies Allergies/Adverse Reactions: Allergies Allergy/AdvReac Type Severity Reaction Status Date / Time No Known Drug Allergies Allergy Verified 10/01/18 17:27 - Social History Does the pt smoke?: No Smoking Status: Never smoker Does the pt drink ETOH?: No Does the pt have substance abuse?: No - Immunizations Immunizations are current?: Yes - POLST Patient has POLST: No PD ED PE NORMAL - Vitals Vital signs reviewed: Yes - General General: Alert and oriented X 3, No acute distress, Well developed/nourished - HEENT HEENT: PERRL, Ears normal, Moist mucous membranes, Pharynx benign - Neck Neck: Supple, no meningeal sign, No bony TTP - Cardiac Cardiac: RRR - Respiratory Respiratory: No respiratory distress, Clear bilaterally - Abdomen Abdomen: Soft, Non tender, Non distended - Back Back: No spinal TTP - Derm Derm: Warm and dry - Extremities Extremities: No edema - Neuro Neuro: Alert and oriented X 3, electrician machine shop 2-12 intact, No motor deficit, No sensory deficit Eye Opening: Spontaneous Motor: Obeys Commands Verbal: Oriented GCS Score: 15 Results - Vitals Vitals: Oxygen O2 Source Room air - Labs Labs: Laboratory Tests 10/01/18 19:37 Ur Specific [place] 1.010 Urine HCG, Qual NEGATIVE - Rads (name of study) head CT Radiology: Prelim report reviewed, EMP read contemporaneously, See rad report ( normal) PD MEDICAL DECISION MAKING - ED course Complexity details: reviewed results, re-evaluated patient, considered differential, d/w patient ED course: 23 year old female with what appears to be a migraine headache. not relieved by initial meds, so head CT obtained. no acute fidings. Headache gradually improved and she would like to go home. no evidence of SAH. Will continue supportive care and follow up with her PCP. Normal repeat neuro exam. Patient counseled regarding signs and symptoms for which I believe and urgent re-evaluation would be necessary. Patient with good understanding of and agreement to plan and is comfortable going home at this time This document was made in part using voice recognition software. While efforts are made to proofread this document, sound alike and grammatical errors may occur. Departure - Departure Disposition: 01 Home, Self Care Clinical Impression: Headache Qualifiers: Headache type: unspecified Headache chronicity pattern: acute headache Intractability: not intractable Qualified Code(s): R51 - Headache Condition: Good Instructions: ED Cephalgia Unspecified Follow-Up: FAYE LANDAVERDE DO [Primary Care Provider] - Within 1 week Comments: Return if you worsen. go home and rest tonight. Follow up with your doctor for further care. Discharge Date/Time: 10/01/18 22:36
[2018-10-01 19:46] LABS: HCG UR QUAL NEGATIVE
--- NOTE | 2018-10-01 21:24 | CT Report ---
Reason: headache, R sided Procedure Date: 10/01/2018 Accession Number: [id number] / [id number] Procedure: CT - Head W/O CPT Code: FULL RESULT: EXAM: CT HEAD EXAM DATE: 10/01/2018 09:09 PM. CLINICAL HISTORY: Headache, R sided. COMPARISON: HEAD W/O 04/24/2018 12:17 PM. TECHNIQUE: Multiaxial CT images were obtained from the foramen magnum to the vertex. Reformats: Sagittal and coronal. IV contrast: None. In accordance with CT protocol optimization, one or more of the following dose reduction techniques were utilized for this exam: automated exposure control, adjustment of mA and/or KV based on patient size, or use of iterative reconstructive technique. FINDINGS: Parenchyma: No intraparenchymal hemorrhage. No evidence of mass, midline shift, or CT findings of infarction. Goel-white differentiation is distinct. Extraaxial Spaces: Normal for age. No subdural or epidural collections identified. Ventricles: Normal in size and position. Sinuses and Orbits: Imaged paranasal sinuses, orbits, and mastoids show no significant abnormality. Bones: No evidence of fracture or calvarial defect. Other: None. IMPRESSION: Normal head CT. RADIA
[2018-10-01] MEDS ORDERED: MORPHINE 2 MG/ML CARPUJECT IM STA (21:40)
[2018-10-01 22:16] VITALS: BP 119/86
== END 2018-10-01 22:36 | disposition home or self-care (01) ==
LOC: ED 17:07
DX: R51 Headache (principal)
CPT/HCPCS: 70450; 81025; 96372; 99283; J1200

== ENCOUNTER 2018-10-10 04:49 | Emergency (ER) | payer OTHER ==
--- NOTE | 2018-10-10 05:23 | ED Physician Documentation ---
History of Present Illness - Stated complaint Stated Complaint: POST OP REACTION - Chief complaint Chief Complaint: Resp - History obtained from History obtained from: Patient - History of Present Illness Timing: How many hours ago (3-4 hours ago) Improved by: no ameliorating factors Worsened by: no exacerbating factors - Additonal information Additional information: patient c/o few hours of generalized pruritis, waxing and waning rash diffuse on body, predominantly extremities. Also feels as if "hard to swallow" (per patient). Had procedure at [facility] yesterday, cyst removed from left groin. She has taken vicodin as prescribed for the pain, although she has had this same medication in the past without adverse effect. 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 : None HEENT: None Psych: Anxiety Musculoskeletal: Other Derm: Other - Past Surgical History Past Surgical History: Yes General: Colonoscopy, Other /HYSTER MACHINE OPERATOR: Endometrial ablation, Other - Present Medications Home Medications: Ambulatory Orders Medication Instructions Recorded Confirmed Iud 04/24/18 LORazepam [Lorazepam] 1 mg PO TID PRN #14 tablet 08/05/18 Minocycline HCl 1 cap PO BID 08/05/18 08/05/18 Venlafaxine ER [Effexor ER] 1 cap PO BID 08/05/18 08/05/18 hydrOXYzine PAMOATE [Vistaril] 25 mg PO Q6H PRN #14 capsule 08/05/18 hydrOXYzine pamoate [Hydroxyzine 25 mg PO Q6HR PRN #20 capsule 10/10/18 Pamoate] oxyCODONE [Roxicodone] 5 - 10 mg PO Q6H PRN #14 tablet 10/10/18 predniSONE [Prednisone] 40 mg PO DAILY 3 Days #6 tablet 10/10/18 - Allergies Allergies/Adverse Reactions: Allergies Allergy/AdvReac Type Severity Reaction Status Date / Time No Known Drug Allergies Allergy Verified 10/10/18 05:13 - Social History Does the pt smoke?: No Smoking Status: Never smoker Does the pt drink ETOH?: No Does the pt have substance abuse?: No - Immunizations Immunizations are current?: Yes - POLST Patient has POLST: No PD ED PE NORMAL - Vitals Vital signs reviewed: Yes - General General: Alert and oriented X 3, Well developed/nourished, Other (appears anxious) - Cardiac Cardiac: RRR, No murmur - Respiratory Respiratory: No respiratory distress, Clear bilaterally - Derm Derm: Other (faint, flat erythema with indistinct margins on LUE (upper arm). I do not see any exanthem on remainder of skin exam) - Extremities Extremities: No edema Results - Vitals Vitals: Vital Signs - 24 hr 10/10/18 10/10/18 10/10/18 05:00 05:58 07:03 Temperature 36.6 C Heart Rate 99 104 H 61 Respiratory 20 22 18 Rate Blood Pressure 160/90 H 124/97 H 123/86 H O2 Saturation 98 97 99 Oxygen O2 Source Room air PD MEDICAL DECISION MAKING - ED course Complexity details: re-evaluated patient, considered differential, d/w patient ED course: on reevaluation, patient is drowsy but awakens to voice. She reports significant improvement after IM benadryl and PO prednisone. Also given a dose of oxycodone; she says she was having post-operative pain left groin and was due for a dose of vicodin. While her symptoms do not seem likely to be related to the vicodin, it is possible and thus I will switch her to oxycodone for pain control Departure - Departure Disposition: 01 Home, Self Care Clinical Impression: Allergic reaction Condition: Good Instructions: ED Allergic Reaction General Other Follow-Up: FAYE LANDAVERDE DO [Primary Care Provider] - Prescriptions: hydrOXYzine pamoate [Hydroxyzine Pamoate] 25 mg PO Q6HR PRN #20 capsule PRN Reason: Itching oxyCODONE [Roxicodone] 5 - 10 mg PO Q6H PRN #14 tablet PRN Reason: Pain predniSONE [Prednisone] 40 mg PO DAILY 3 Days #6 tablet Comments: You can take the oxycodone instead of the vicodin (hydrocodone/acetaminophen) Discharge Date/Time: 10/10/18 07:50
[2018-10-10] MEDS ORDERED: oxyCODONE 5 MG TABLET PO STA (05:43)
[2018-10-10] MEDS ORDERED: diphenhydrAMINE INJ 50 MG/ML VIAL IM STA (05:43)
[2018-10-10] MEDS ORDERED: predniSONE 20 MG TABLET PO STA (05:43)
[2018-10-10 07:04] VITALS: BP 123/86
== END 2018-10-10 07:50 | disposition home or self-care (01) ==
LOC: ED 04:49
DX: T78.40XA Allergy, unspecified, initial encounter (principal); L29.9 Pruritus, unspecified; R21 Rash and other nonspecific skin eruption
CPT/HCPCS: 96372; 99283; A9270; J1200; J7512

== ENCOUNTER 2018-11-15 18:22 | Emergency (ER) | payer OTHER ==
--- NOTE | 2018-11-15 20:32 | ED Physician Documentation ---
PD HPI HEADACHE - Stated complaint Stated Complaint: HUBBARD - Chief complaint Chief Complaint: Neuro - History obtained from History obtained from: Patient - History of Present Illness Timing - onset: How many hours ago (few) Timing - duration: Hours Timing - details: Gradual onset, Still present Worst headache ever?: No: Worst headache ever? (feels similar to prior migraines for which she would usually take Imitrex, but was out of meds. Occasionally to ER for migraines unresponsive to home meds.) Quality: Throbbing Associated symptoms: Nausea, Vomiting (4 times so far). No: Fever, Stiff neck, Weakness, Numbness Worsened by: Light, Noise Contributing factors: No: Recent illness, Trauma Similar symptoms before: Diagnosis (migraines intermittent) Review of Systems Constitutional: denies: Fever Eyes: reports: Photophobia. denies: Loss of vision Nose: denies: Rhinorrhea / runny nose, Congestion Throat: denies: Sore throat Respiratory: denies: Cough GI: reports: Nausea, Vomiting. denies: Abdominal Pain, Diarrhea : denies: Dysuria, Frequency Neurologic: reports: Headache. denies: Focal weakness, Numbness, Altered mental status PD PAST MEDICAL HISTORY - Past Medical History Cardiovascular: None Respiratory: None Neuro: Migraines Endocrine/Autoimmune: None GI: None UPPER CUTTER OUT: Endometriosis : None HEENT: None Psych: Anxiety Musculoskeletal: Other Derm: Other - Past Surgical History Past Surgical History: Yes General: Colonoscopy, Other /UPPER CUTTER OUT: Endometrial ablation, Other - Present Medications Home Medications: Ambulatory Orders Medication Instructions Recorded Confirmed Iud 04/24/18 LORazepam [Lorazepam] 1 mg PO TID PRN #14 tablet 08/05/18 Minocycline HCl 1 cap PO BID 08/05/18 08/05/18 Venlafaxine ER [Effexor ER] 1 cap PO BID 08/05/18 08/05/18 hydrOXYzine PAMOATE [Vistaril] 25 mg PO Q6H PRN #14 capsule 08/05/18 hydrOXYzine pamoate [Hydroxyzine 25 mg PO Q6HR PRN #20 capsule 10/10/18 Pamoate] oxyCODONE [Roxicodone] 5 - 10 mg PO Q6H PRN #14 tablet 10/10/18 predniSONE [Prednisone] 40 mg PO DAILY 3 Days #6 tablet 12/05/18 Naproxen 500 mg PO BID #20 tablet 11/15/18 Promethazine [Phenergan] 25 mg PO Q6H PRN #10 tab 11/15/18 Sumatriptan Succinate [Imitrex] 50 mg PO ONCE PRN #9 tablet 11/15/18 - Allergies Allergies/Adverse Reactions: Allergies Allergy/AdvReac Type Severity Reaction Status Date / Time No Known Drug Allergies Allergy Verified 10/10/18 05:13 - Social History Does the pt smoke?: No Smoking Status: Never smoker Does the pt drink ETOH?: No Does the pt have substance abuse?: No - Immunizations Immunizations are current?: Yes - POLST Patient has POLST: No PD ED PE NORMAL - Vitals Vital signs reviewed: Yes - General General: Alert and oriented X 3, Well developed/nourished, Other (seems uncomfortable and is preferring dark room) - HEENT HEENT: Atraumatic - Neck Neck: Supple, no meningeal sign, No adenopathy - Cardiac Cardiac: RRR, No murmur - Respiratory Respiratory: Clear bilaterally - Derm Derm: Normal color, Warm and dry - Extremities Extremities: Normal ROM s pain - Neuro Neuro: Alert and oriented X 3, 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 ), considered differential, d/w patient Departure - Departure Disposition: 01 Home, Self Care Clinical Impression: Migraine Qualifiers: Migraine type: without aura Status migrainosus presence: without status migrainosus Intractability: not intractable Qualified Code(s): G43.009 - Migraine without aura, not intractable, without status migrainosus Condition: Stable Record reviewed to determine appropriate education?: Yes Instructions: ED Headache Migraine Follow-Up: FAYE LANDAVERDE DO [Primary Care Provider] - Prescriptions: Naproxen 500 mg PO BID #20 tablet Promethazine [Phenergan] 25 mg PO Q6H PRN #10 tab PRN Reason: Nausea / Vomiting Sumatriptan Succinate [Imitrex] 50 mg PO ONCE PRN #9 tablet PRN Reason: Migraine Comments: Home and rest tonight. Drink lots of fluids. For subsequent migraines, use sumatriptan combined with some naproxen or ibuprofen and you could add promethazine for nausea. Follow-up if these do not resolve your headache. Follow-up with your primary care physician. Forms: Activity restrictions Discharge Date/Time: 11/15/18 23:10
[2018-11-15] MEDS ORDERED: SODIUM CHLORIDE 0.9% 1,000 ML IV ONE (21:46)
[2018-11-15] MEDS ORDERED: diphenhydrAMINE INJ 50 MG/ML VIAL IVP STA (21:47)
[2018-11-15] MEDS ORDERED: KETOROLAC 30 MG/ML VIAL IVP STA (21:47)
[2018-11-15] MEDS ORDERED: PROCHLORPERAZINE 10 MG/2 ML VIAL IVP STA (21:47)
[2018-11-15] MEDS ORDERED: MORPHINE 10 MG/ML VIAL IVP STA (21:47)
[2018-11-15] MEDS ORDERED: DEXAMETHASONE 10 MG/ML VIAL IVP STA (21:47)
[2018-11-15 23:00] VITALS: BP 114/62
== END 2018-11-15 23:10 | disposition home or self-care (01) ==
LOC: ED 18:22
DX: G43.009 Migraine without aura, not intractable, without status migrainosus (principal)
CPT/HCPCS: 96361; 96374; 96375; 99283; J1200

== ENCOUNTER 2018-11-20 14:28 | Emergency (ER) | payer OTHER ==
[2018-11-20 14:37] VITALS: BP 145/105
[2018-11-20] MEDS ORDERED: KETOROLAC 60 MG/2 ML VIAL IM STA (14:55)
[2018-11-20] MEDS ORDERED: CYCLOBENZAPRINE 10 MG TABLET PO STA (14:56)
[2018-11-20] MEDS ORDERED: oxyCODONE 5 MG TABLET PO STA (14:56)
[2018-11-20] MEDS ORDERED: DEXAMETHASONE 10 MG/ML VIAL PO STA (14:56)
--- NOTE | 2018-11-20 16:09 | ED Physician Documentation ---
PD HPI BACK PAIN - Stated complaint Stated Complaint: LOWER BACK - Chief complaint Chief Complaint: Back Pain - History obtained from History obtained from: Patient, Friend - History of Present Illness Timing - onset: How many hours ago (3) Timing - duration: Hours (3) Timing - details: Abrupt onset Pain level max: 10 Pain level now: 10 Location: Lower, Left Quality: Pain, Spasm, Sharp Associated symptoms: No: Fever, Weakness, Numbness, Incontinent of urine, Unable to urinate, Hematuria, Incontinent of stool Improves with: Rest Worsened by: Movement Contributing factors: Other (states pain started in the back when moving her seat. 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 : None HEENT: None Psych: Anxiety Musculoskeletal: Other Derm: Other - Past Surgical History Past Surgical History: Yes General: Colonoscopy, Other /DIRECTOR AUTOMOTIVE: Endometrial ablation, Other - Present Medications Home Medications: Ambulatory Orders Medication Instructions Recorded Confirmed Iud 04/24/18 Minocycline HCl 1 cap PO BID 08/05/18 11/20/18 Venlafaxine ER [Effexor ER] 1 cap PO BID 08/05/18 11/20/18 hydrOXYzine PAMOATE [Vistaril] 25 mg PO Q6H PRN #14 capsule 08/05/18 11/20/18 hydrOXYzine pamoate [Hydroxyzine 25 mg PO Q6HR PRN #20 capsule 10/10/18 11/20/18 Pamoate] oxyCODONE [Roxicodone] 5 - 10 mg PO Q6H PRN #14 tablet 10/10/18 11/20/18 predniSONE [Prednisone] 40 mg PO DAILY 3 Days #6 tablet 10/10/18 11/20/18 Naproxen 500 mg PO BID #20 tablet 11/15/18 11/20/18 Promethazine [Phenergan] 25 mg PO Q6H PRN #10 tab 11/15/18 11/20/18 Sumatriptan Succinate [Imitrex] 50 mg PO ONCE PRN #9 tablet 11/15/18 11/20/18 Cyclobenzaprine [Flexeril] 10 mg PO TID PRN #20 tablet 11/20/18 Meloxicam [Mobic] 15 mg PO DAILY PRN #20 tablet 11/20/18 Oxycodone HCl/Acetaminophen 1 - 2 each PO Q6H PRN #14 tablet 11/20/18 [Percocet 5-325 mg Tablet] predniSONE [Deltasone] 10 mg PO [id number] #42 tab 11/20/18 - Allergies Allergies/Adverse Reactions: Allergies Allergy/AdvReac Type Severity Reaction Status Date / Time hydrocodone Allergy Itching Verified 11/20/18 14:44 - Social History Does the pt smoke?: No Smoking Status: Never smoker Does the pt drink ETOH?: No Does the pt have substance abuse?: No - Immunizations Immunizations are current?: Yes - POLST Patient has POLST: No PD ED PE NORMAL - Vitals Vital signs reviewed: Yes - General General: Alert and oriented X 3, No acute distress, Well developed/nourished - HEENT HEENT: PERRL, Moist mucous membranes - Neck Neck: Supple, no meningeal sign - Cardiac Cardiac: RRR, Strong equal pulses - Respiratory Respiratory: No respiratory distress, Clear bilaterally - Abdomen Abdomen: Soft, Non tender, Non distended - Back Back: No spinal TTP (No midline tenderness to palpation or percussion. There is left-sided paraspinal muscle spasm low lumbar) - Derm Derm: Warm and dry - Extremities Extremities: No edema - Neuro Neuro: Alert and oriented X 3, No motor deficit, No sensory deficit, Other (Normal bilateral lower extremity patellar and ankle jerk reflexes. Normal great toe extension bilaterally. no saddle anesthesia) - Psych Psych: Normal mood, Normal affect Results - Vitals Vitals: Vital Signs - 24 hr 11/20/18 14:35 Temperature 36.8 C Heart Rate 118 H Respiratory 18 Rate Blood Pressure 145/105 H O2 Saturation 98 Oxygen O2 Source Room air PD MEDICAL DECISION MAKING - ED course Complexity details: re-evaluated patient, considered differential (No cauda equina, no spinal epidural abscess, no fracture, no aortic dissection or evidence of aneursym rupture), d/w patient ED course: 23-year-old female with what appears to be left-sided sciatica. Feels better after medications and is ambulating well in the. She does request crutches for home and these were provided to her. She will follow-up with her doctor for further care. No evidence of cauda equina, epidural abscess. No trauma. No suggestion of fracture. Imaging held at this time. Patient counseled regarding signs and symptoms for which I believe and urgent re-evaluation would be necessary. Patient with good understanding of and agreement to plan and is comfortable going home at this time This document was made in part using voice recognition software. While efforts are made to proofread this document, sound alike and grammatical errors may occur. Departure - Departure Disposition: Home, Self Care Clinical Impression: Sciatica Qualifiers: Laterality: left Qualified Code(s): M54.32 - Sciatica, left side Condition: Good Instructions: ED Sciatica Follow-Up: FAYE LANDAVERDE DO [Primary Care Provider] - Within 1 week Prescriptions: Cyclobenzaprine [Flexeril] 10 mg PO TID PRN #20 tablet PRN Reason: Spasms Meloxicam [Mobic] 15 mg PO DAILY PRN #20 tablet PRN Reason: pain Oxycodone HCl/Acetaminophen [Percocet 5-325 mg Tablet] 1 - 2 each PO Q6H PRN #14 tablet PRN Reason: pain predniSONE [Deltasone] 10 mg PO [id number] #42 tab Comments: Return if you worsen. Follow-up with your doctor for further care. Use the medications as prescribed. Do not drink alcohol or drive while on narcotic pain medicine. Note that many narcotic pain relievers also contain tylenol/acetaminophen. Please ensure that your total dose of acetaminophen from all sources does not exceed 3 grams (3000mg) per day. You may constipated on this medication, take a stool softener such as "Colace" twice a day while you are on it. Also recommend a [id number]-qmdvohd laxative such as senna or MiraLAX any day that you do not have a bowel movement. If you received narcotic pain medication in the emergency department, do not drive or operate machinery for the next 24 hours. Forms: Activity restrictions
== END 2018-11-20 16:25 | disposition home or self-care (01) ==
LOC: ED 14:28
DX: M54.32 Sciatica, left side (principal)
CPT/HCPCS: 96372; 99283; A9270

== ENCOUNTER 2018-11-27 17:23 | Emergency (ER) | payer OTHER ==
[2018-11-27] MEDS ORDERED: HYDROmorphone 1 MG/ML CARPUJECT IM STA (19:11)
--- NOTE | 2018-11-27 19:17 | ED Physician Documentation ---
PD HPI BACK INJURY - Stated complaint Stated Complaint: BK PX - History obtained from History obtained from: Patient - History of Present Illness Location: Left (She was seen about a week ago for left-sided sciatica. She was slowly getting better and the medications prescribed which included Percocet, Flexeril, steroids. It got worse today after sneezing and she describes a burning pain going from the left sciatic notch down to the lateral leg. 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 : None HEENT: None Psych: Anxiety Musculoskeletal: Other Derm: Other - Past Surgical History Past Surgical History: Yes General: Colonoscopy, Other /EDGE STAINER MACHINE: Endometrial ablation, Other - Present Medications Home Medications: Ambulatory Orders Medication Instructions Recorded Confirmed Iud 04/24/18 Minocycline HCl 1 cap PO BID 08/05/18 11/20/18 Venlafaxine ER [Effexor ER] 1 cap PO BID 08/05/18 11/20/18 hydrOXYzine PAMOATE [Vistaril] 25 mg PO Q6H PRN #14 capsule 08/05/18 11/20/18 hydrOXYzine pamoate [Hydroxyzine 25 mg PO Q6HR PRN #20 capsule 10/10/18 11/20/18 Pamoate] oxyCODONE [Roxicodone] 5 - 10 mg PO Q6H PRN #14 tablet 10/10/18 11/20/18 predniSONE [Prednisone] 40 mg PO DAILY 3 Days #6 tablet 10/10/18 11/20/18 Naproxen 500 mg PO BID #20 tablet 11/15/18 11/20/18 Promethazine [Phenergan] 25 mg PO Q6H PRN #10 tab 11/15/18 11/20/18 Sumatriptan Succinate [Imitrex] 50 mg PO ONCE PRN #9 tablet 11/15/18 11/20/18 Cyclobenzaprine [Flexeril] 10 mg PO TID PRN #20 tablet 11/20/18 Meloxicam [Mobic] 15 mg PO DAILY PRN #20 tablet 11/20/18 Oxycodone HCl/Acetaminophen 1 - 2 each PO Q6H PRN #14 tablet 11/20/18 [Percocet 5-325 mg Tablet] predniSONE [Deltasone] 10 mg PO [id number] #42 tab 11/20/18 Ibuprofen [Motrin] 800 mg PO Q8H PRN #30 tablet 11/27/18 Oxycodone HCl/Acetaminophen 1 - 2 each PO Q6H PRN #14 tablet 11/27/18 [Percocet 5-325 mg Tablet] - Allergies Allergies/Adverse Reactions: Allergies Allergy/AdvReac Type Severity Reaction Status Date / Time hydrocodone Allergy Itching Verified 11/27/18 17:40 - Social History Does the pt smoke?: No Smoking Status: Never smoker Does the pt drink ETOH?: No Does the pt have substance abuse?: No - Immunizations Immunizations are current?: Yes - POLST Patient has POLST: No PD ED PE NORMAL - Vitals Vital signs reviewed: Yes - General General: Alert and oriented X 3, No acute distress - Abdomen Abdomen: Normal bowel sounds, Soft, Non tender - Back Back: No spinal TTP - Extremities Extremities: Other (Slightly diminished sensation in the left L4 distribution with correspondingly diminished left patellar reflex but normal strength in flexion and extension at the ankles and knees.) - Neuro Neuro: Alert and oriented X 3, Normal speech Results - Vitals Vitals: Vital Signs - 24 hr 11/27/18 17:35 Temperature 36 C L Heart Rate 90 Respiratory 18 Rate Blood Pressure 104/55 L O2 Saturation 100 Oxygen O2 Source Room air PD MEDICAL DECISION MAKING - ED course Complexity details: reviewed old records (Relatively frequent emergency department use, 11 visits here in the last 12 months and 13 visits to all ED's with controlled substance prescriptions at most of these including 4 prescriptions for narcotics in the last 3 months from this ED.) ED course: This patient has seemingly uncomplicated musculoskeletal back pain. The patient has no "red flags." Specifically denies IV drug use, fevers, incontinence, saddle anesthesia. Spinal epidural abscess was considered, given that the patient has no fever, is not diabetic, has no spinal tenderness, does not use IV drugs, and has no bilateral neurologic symptoms, the diagnosis of spinal epidural abscess is considered exceedingly unlikely. Departure - Departure Disposition: Home, Self Care Clinical Impression: Sciatica Qualifiers: Laterality: left Qualified Code(s): M54.32 - Sciatica, left side Condition: Good Record reviewed to determine appropriate education?: Yes Instructions: ED Sciatica Prescriptions: Ibuprofen [Motrin] 800 mg PO Q8H PRN #30 tablet PRN Reason: PAIN &/OR FEVER Oxycodone HCl/Acetaminophen [Percocet 5-325 mg Tablet] 1 - 2 each PO Q6H PRN #14 tablet PRN Reason: pain Comments: Call your doctor to arrange a follow-up appointment, make the next available appointment. In the interim, return anytime if worse or if new symptoms develop. Do not drink or drive while taking narcotic pain medication. Note that many narcotic pain relievers also contain Tylenol/acetaminophen. Please ensure that your total dose of acetaminophen from all sources does not exceed 3 g (3000 mg) per day. You may get constipated while on this medication. Take a stool softener such as Colace twice a day while you are on it. Also add an dgsz-ady-gcbqvif laxative such as senna or MiraLAX on any day that you do not have a bowel movement. If you received a narcotic pain medication or sedative while in the emergency department, do not drive for the next 24 hours. The policy of this emergency department is to not give more than 3 prescriptions for narcotics or other controlled substances in any 1 year. You have already surpassed this benchmark and we cannot prescribe narcotics for you. I encourage you to follow up with your primary care physician or to establish care with a primary care physician for ongoing pain management. You are always welcome to seek emergency care here for this or new issues but there will likely be cifuentes itations in the prescription of narcotic pain medication.
[2018-11-27 19:30] VITALS: BP 111/65
== END 2018-11-27 19:30 | disposition home or self-care (01) ==
LOC: ED 17:23
DX: M54.32 Sciatica, left side (principal)
CPT/HCPCS: 96372; 99283; J1170

== ENCOUNTER 2018-12-02 05:37 | Emergency (ER) | payer OTHER ==
[2018-12-02 05:47] VITALS: BP 100/61
[2018-12-02] MEDS ORDERED: DEXAMETHASONE 10 MG/ML VIAL PO STA (05:54)
--- NOTE | 2018-12-02 05:58 | ED Physician Documentation ---
PD HPI URI - Stated complaint Stated Complaint: DIFF BREATHING,THROAT PX - Chief complaint Chief Complaint: Resp - History obtained from History obtained from: Patient, Friend - History of Present Illness Timing - onset: How many days ago (3) Timing duration: Days (3) Timing details: Gradual onset Pain level max: 7 Pain level now: 6 Associated symptoms: Fever, Chills, Sore throat, Productive cough (occasional productive cough), Chest pain (states chest hurts with coughing). No: Nasal congestion, Rhinorrhea, Dyspnea Contributing factors: Sick contact Improves by: Rest Worsened by: Activity, Other (swallowing) Similar symptoms before: Has not had sx before Recently seen: Clinic - Additional information Additional information: Patient seen at the [facility] yesterday. Negative rapid strep. However they felt that strep pharyngitis was likely and treated her with azithromycin. She states that her throat has become worsened today. 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 : None HEENT: None Psych: Depression, Anxiety Musculoskeletal: Chronic back pain, Other Derm: Other - Past Surgical History Past Surgical History: Yes General: Colonoscopy, Other /WOOD MILL SUPERVISOR: Endometrial ablation, Other - Present Medications Home Medications: Ambulatory Orders Medication Instructions Recorded Confirmed Iud 04/24/18 Minocycline HCl 1 cap PO BID 08/05/18 11/20/18 Venlafaxine ER [Effexor ER] 1 cap PO BID 08/05/18 11/20/18 hydrOXYzine PAMOATE [Vistaril] 25 mg PO Q6H PRN #14 capsule 08/05/18 11/20/18 hydrOXYzine pamoate [Hydroxyzine 25 mg PO Q6HR PRN #20 capsule 10/10/18 11/20/18 Pamoate] oxyCODONE [Roxicodone] 5 - 10 mg PO Q6H PRN #14 tablet 10/10/18 11/20/18 predniSONE [Prednisone] 40 mg PO DAILY 3 Days #6 tablet 10/10/18 11/20/18 Naproxen 500 mg PO BID #20 tablet 11/15/18 11/20/18 Promethazine [Phenergan] 25 mg PO Q6H PRN #10 tab 11/15/18 11/20/18 Sumatriptan Succinate [Imitrex] 50 mg PO ONCE PRN #9 tablet 11/15/18 11/20/18 Cyclobenzaprine [Flexeril] 10 mg PO TID PRN #20 tablet 11/20/18 Meloxicam [Mobic] 15 mg PO DAILY PRN #20 tablet 11/20/18 Oxycodone HCl/Acetaminophen 1 - 2 each PO Q6H PRN #14 tablet 11/20/18 [Percocet 5-325 mg Tablet] predniSONE [Deltasone] 10 mg PO [id number] #42 tab 11/20/18 Ibuprofen [Motrin] 800 mg PO Q8H PRN #30 tablet 11/27/18 Oxycodone HCl/Acetaminophen 1 - 2 each PO Q6H PRN #14 tablet 11/27/18 [Percocet 5-325 mg Tablet] Nystatin 500,000 unit PO Q6HR PRN #200 ml 12/02/18 - Allergies Allergies/Adverse Reactions: Allergies Allergy/AdvReac Type Severity Reaction Status Date / Time hydrocodone Allergy Itching Verified 12/02/18 05:47 - Social History Does the pt smoke?: No Smoking Status: Never smoker Does the pt drink ETOH?: No Does the pt have substance abuse?: No - Immunizations Immunizations are current?: Yes - POLST Patient has POLST: No PD ED PE NORMAL - Vitals Vital signs reviewed: Yes - General General: Alert and oriented X 3, No acute distress, Well developed/nourished - HEENT HEENT: PERRL, Moist mucous membranes, Other (Leukoplakia present. Moderate posterior oropharyngeal erythema with tonsillar exudates. Uvula midline. Normal phonation. No trismus) - Neck Neck: Supple, no meningeal sign, Other (Shotty anterior lymphadenopathy) - Cardiac Cardiac: RRR - Respiratory Respiratory: No respiratory distress, Clear bilaterally - Abdomen Abdomen: Soft, Non tender, Non distended - Derm Derm: Warm and dry, No rash - Neuro Neuro: Alert and oriented X 3 - Psych Psych: Normal mood, Normal affect Results - Vitals Vitals: Vital Signs - 24 hr 12/02/18 05:40 Temperature 37.0 C Heart Rate 87 Respiratory 16 Rate Blood Pressure 100/61 O2 Saturation 100 Oxygen O2 Source Room air PD MEDICAL DECISION MAKING - ED course Complexity details: considered differential, d/w patient ED course: 23-year-old female with what appears to be likely streptococcal pharyngitis, possible complicated by thrush. Will place on oral nystatin. Also given dexamethasone here. We will have her continue the azithromycin as prescribed yesterday. She is well-appearing, nontoxic. Afebrile. Tolerating p.o. without difficulty. Well-hydrated. Patient counseled regarding signs and symptoms for which I believe and urgent re-evaluation would be necessary. Patient with good understanding of and agreement to plan and is comfortable going home at this time This document was made in part using voice recognition software. While efforts are made to proofread this document, sound alike and grammatical errors may occur. Departure - Departure Disposition: 01 Home, Self Care Clinical Impression: Pharyngitis Qualifiers: Pharyngitis/tonsillitis etiology: unspecified etiology Qualified Code(s): J02.9 - Acute pharyngitis, unspecified Condition: Good Instructions: ED Strep Pharyngitis Poss Follow-Up: FAYE LANDAVERDE DO [Primary Care Provider] - Within 1 week Prescriptions: Nystatin 500,000 unit PO Q6HR PRN #200 ml PRN Reason: thrush Comments: Continue the antibiotics at home. Return if you worsen. drink plenty of fluids and rest. Discharge Date/Time: 12/02/18 06:04
== END 2018-12-02 06:04 | disposition home or self-care (01) ==
LOC: ED 05:37
DX: J02.9 Acute pharyngitis, unspecified (principal)
CPT/HCPCS: 99283

== ENCOUNTER 2018-12-26 09:01 | Outpatient (CLI) | payer OTHER ==
[2018-12-26] MEDS ORDERED: GADOBUTROL 10 MMOL/10 ML VIAL ONE (09:05)
[2018-12-26] MEDS ORDERED: GADOBUTROL 7.5 MMOL/7.5 ML VIAL ONE (09:12)
[2018-12-26] MEDS ORDERED: GADOBUTROL 7.5 MMOL/7.5 ML VIAL IVP ONE ×2 (11:05)
--- NOTE | 2018-12-26 14:27 | MRI Report ---
Reason: MIGRAINE, NOT INTRACTABLE, W/O STATUS FL, NECK ISAAC Procedure Date: 12/26/2018 Accession Number: [id number] / [id number] Procedure: MRI - Cervical Spine W/WO CPT Code: FULL RESULT: EXAM: MRI CERVICAL SPINE WITHOUT AND WITH CONTRAST EXAM DATE: 12/26/2018 09:06 AM. CLINICAL HISTORY: 23-year-old female MIGRAINE, NOT INTRACTABLE, W/O STATUS FL, NECK PAIN. COMPARISON: CT cervical spine 04/24/2018 TECHNIQUE: Multiplanar, multisequence T1-weighted and fluid-sensitive sequences of the cervical spine before and after administration of intravenous contrast. Other: None. IV contrast: 6 ML Gadavist. FINDINGS: Neurologic Structures: The visualized posterior fossa structures are unremarkable. No signal abnormality in the visualized spinal cord. No abnormal enhancement. Alignment: No scoliosis or spondylolisthesis. Bone Marrow: No gross fractures or bone lesions. No marrow edema or abnormal enhancement. Interspace Levels/Facets: C1-C2: Unremarkable. C2-C3: Unremarkable. C3-C4: Unremarkable. C4-C5: Unremarkable. C5-C6: Unremarkable. C6-C7: Unremarkable. C7-T1: Unremarkable. Spinal Canal: No enhancing lesions within the spinal canal. No epidural abscess. Musculature: Normal. No edema, enhancement, or fatty atrophy. Other: The paravertebral and prevertebral soft tissues are normal. IMPRESSION: Unremarkable cervical spine MRI. No abnormal enhancement. RADIA
--- NOTE | 2018-12-26 14:35 | MRI Report ---
Reason: MIGRAINE, NOT INTRACTABLE, W/O STATUS [place], NECK ISAAC Procedure Date: 12/26/2018 Accession Number: [id number] / [id number] Procedure: MRI - Brain W/WO CPT Code: FULL RESULT: EXAM: MRI BRAIN WITHOUT AND WITH CONTRAST EXAM DATE: 12/26/2018 11:01 AM. CLINICAL HISTORY: 23-year-old female. MIGRAINE, NOT INTRACTABLE, W/O STATUS WY, NECK PAIN. COMPARISON: HEAD W/O 10/01/2018 8:53 PM. TECHNIQUE: Multiplanar, multisequence T1-weighted and fluid-sensitive MR sequences of the brain were performed. Sequences optimized for routine evaluation. Other: None. IV Contrast: 6 ML Gadavist. FINDINGS: Brain Volume: Normal for age. Parenchyma: No acute hemorrhage, mass, or infarct. No white matter lesions identified. No parenchymal foci susceptibility artifact. 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 No other abnormal enhancement. Ventricles/Cisterns: No hydrocephalus. No abnormal extra-axial fluid collection or hemorrhage. Orbits: Symmetric and unremarkable. Sella Turcica: The pituitary gland, cavernous sinuses, suprasellar cistern and optic chiasm are unremarkable. IAC: Symmetric and unremarkable. Vasculature: Normal signal flow void is seen in the major arterial structures at the skull base. The dural sinuses are patent and enhance normally. Sinuses: No acute sinus disease. Bones: No focal pathologic appearing marrow signal changes. Other: None. IMPRESSION: 1. Essentially unremarkable MRI examination of the brain. No MRI evidence of acute intracranial abnormality. Specifically, no evidence of acute or subacute infarct, acute intracranial hemorrhage, mass, midline shift, or hydrocephalus. No white matter lesions. 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 No other abnormal enhancement. RADIA
== END 2018-12-26 09:02 | disposition home or self-care (01) ==
LOC: DI 09:01
PROVIDERS: ATTEND Pain Medicine Pain Medicine
DX: G43.909 Migraine, unspecified, not intractable, without status migrainosus (principal)
CPT/HCPCS: 70553; 72156; A9585

== ENCOUNTER 2019-01-08 09:41 | Emergency (ER) | payer OTHER ==
[2019-01-08] MEDS ORDERED: LORazepam 1 MG TABLET PO STA (11:06)
[2019-01-08] MEDS ORDERED: LORazepam 0.5 MG TABLET PO STA (11:19)
--- NOTE | 2019-01-08 11:20 | ED Physician Documentation ---
History of Present Illness - Stated complaint Stated Complaint: ANXIETY - Chief complaint Chief Complaint: General - History obtained from History obtained from: Patient - History of Present Illness Timing: Today Pain level max: 2 Pain level now: 1 Improved by: nothing Worsened by: tapering her clonazepam - Additonal information Additional information: 23 year old female with anxiety. worse today. Has appt with her counselor at 2p today. Review of Systems Constitutional: denies: Fever Throat: denies: Sore throat Cardiac: reports: Chest pain / pressure (States her chest feels tight during these episodes) : denies: Now EGA Skin: denies: Rash Psychiatric: reports: Anxiety. denies: Depressed, Suicidal, Homicidal PD PAST MEDICAL HISTORY - Past Medical History Cardiovascular: None Respiratory: None Neuro: Migraines Endocrine/Autoimmune: None GI: None WIND UP OPERATOR: Endometriosis : None HEENT: None Psych: Depression, Anxiety Musculoskeletal: Chronic back pain, Other Derm: Other - Past Surgical History Past Surgical History: Yes General: Colonoscopy, Other /WIND UP OPERATOR: Endometrial ablation, Other - Present Medications Home Medications: Ambulatory Orders Medication Instructions Recorded Confirmed Minocycline HCl 1 cap PO BID 08/05/18 11/20/18 Venlafaxine ER [Effexor ER] 1 cap PO BID 08/05/18 11/20/18 busPIRone [Buspar] 15 mg PO BID 01/08/19 01/08/19 clonazePAM [Clonazepam] 0.5 mg PO 01/08/19 - Allergies Allergies/Adverse Reactions: Allergies Allergy/AdvReac Type Severity Reaction Status Date / Time hydrocodone Allergy Itching Verified 01/08/19 09:49 - Social History Does the pt smoke?: No Smoking Status: Never smoker Does the pt drink ETOH?: No Does the pt have substance abuse?: No - Immunizations Immunizations are current?: Yes - POLST Patient has POLST: No PD ED PE NORMAL - Vitals Vital signs reviewed: Yes - General General: Alert and oriented X 3, Other (Appears anxious) - HEENT HEENT: PERRL, Moist mucous membranes - Neck Neck: Supple, no meningeal sign - Cardiac Cardiac: RRR, Strong equal pulses - Respiratory Respiratory: No respiratory distress, Clear bilaterally - Abdomen Abdomen: Normal bowel sounds, Soft, Non tender, Non distended - Derm Derm: Warm and dry - Extremities Extremities: No edema, No calf tenderness / cord - Neuro Neuro: Alert and oriented X 3 - Psych Psych: Normal mood, Normal affect Results - Vitals Vitals: Vital Signs - 24 hr 01/08/19 01/08/19 09:47 11:40 Temperature 36.6 C 36.0 C L Heart Rate 125 H 93 Respiratory 24 18 Rate Blood Pressure 147/101 H 132/88 H O2 Saturation 100 93 Oxygen O2 Source Room air PD MEDICAL DECISION MAKING - ED course Complexity details: considered differential, d/w patient ED course: 23-year-old female presents to the emergency department with what appears to be a panic attack. Treated with Ativan. Feels better. We will continue supportive care and follow-up with her counselor this afternoon. She is not suicidal or homicidal. No paranoia or delusions. No hallucinations. No evidence of acute coronary syndrome. Patient counseled regarding signs and sym ptoms for which I believe and urgent re-evaluation would be necessary. Patient with good understanding of and agreement to plan and is comfortable going home at this time This document was made in part using voice recognition software. While efforts are made to proofread this document, sound alike and grammatical errors may occur. Departure - Departure Disposition: 01 Home, Self Care Clinical Impression: Panic attack Condition: Good Instructions: ED Panic Attack Follow-Up: FAYE LANDAVERDE DO [Primary Care Provider] - Within 1 week Comments: Follow up with your counselor today at 2p. Return if you worsen. Discharge Date/Time: 01/08/19 11:48
[2019-01-08 11:41] VITALS: BP 132/88
== END 2019-01-08 11:48 | disposition home or self-care (01) ==
LOC: ED 09:41
DX: F41.0 Panic disorder [episodic paroxysmal anxiety] (principal)
CPT/HCPCS: 99283; A9270

== ENCOUNTER 2019-01-29 15:38 | Emergency (ER) | payer OTHER ==
--- NOTE | 2019-01-29 18:02 | ED Physician Documentation ---
PD HPI CHEST PAIN - Stated complaint Stated Complaint: CHEST PAINS/MHE - Chief complaint Chief Complaint: General - History obtained from History obtained from: Patient - History of Present Illness Timing - onset: Today (she has anxiety and insomnia and has been seeing counselor and PCP. On meds for nightmares for few weeks without much improvement (Prazosin). Today was anxious and was crying and yelling, hard to calm. No report of suicidal ideation, but she says she did say things like "I am tired of the nightmares and not sleeping and can't take it anymore" and "I wish this would all end". She says she meant that she was wantint to get better and did not mean that she was going to hurt herself. 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 Rescheduled for tomorrow morning.) Review of Systems Constitutional: denies: Fever Nose: denies: Rhinorrhea / runny nose, Congestion Throat: denies: Sore throat Cardiac: reports: Chest pain / pressure (today when upset). 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 : None HEENT: None Psych: Depression, Anxiety, Post traumatic stress disorder Musculoskeletal: Chronic back pain, Other Derm: Other - Past Surgical History Past Surgical History: Yes General: Colonoscopy, Other /ELECTRODE CLEANING MACHINE OPERATOR: Endometrial ablation, Other - Present Medications Home Medications: Ambulatory Orders Medication Instructions Recorded Confirmed Minocycline HCl 1 cap PO BID 08/05/18 11/20/18 Venlafaxine ER [Effexor ER] 1 cap PO BID 08/05/18 11/20/18 busPIRone [Buspar] 15 mg PO BID 01/08/19 01/08/19 clonazePAM [Clonazepam] 0.5 mg PO 01/08/19 Cholecalciferol (Vitamin D3) 2,000 unit PO DAILY #20 capsule 01/29/19 [Vitamin D] LORazepam [Ativan] 1 mg PO QPM PRN #8 tablet 01/29/19 Naproxen 375 mg PO BID #20 tablet 01/29/19 - Allergies Allergies/Adverse Reactions: Allergies Allergy/AdvReac Type Severity Reaction Status Date / Time hydrocodone Allergy Itching Verified 01/29/19 15:52 - Social History Does the pt smoke?: Yes Smoking Status: Current every day smoker Does the pt drink ETOH?: No Does the pt have substance abuse?: No - Family History Family history: denies: CAD - Immunizations Immunizations are current?: Yes - POLST Patient has POLST: No PD ED PE NORMAL - Vitals Vital signs reviewed: Yes - General General: Alert and oriented X 3, Well developed/nourished, Other (anxious and slightly tearful. Pleasant and conversant though, willing to talk. ) - HEENT HEENT: Pharynx benign - Neck Neck: Supple, no meningeal sign, No adenopathy - Cardiac Cardiac: RRR, No murmur - Respiratory Respiratory: Clear bilaterally, Other (mild anterior sternal tenderness in cartilage areas. ) - Abdomen Abdomen: Soft, Non tender - Derm Derm: Normal color, Warm and dry - Extremities Extremities: No tenderness to palpate, Normal ROM s pain, No edema, No calf tenderness / cord - Neuro Neuro: Alert and oriented X 3, No motor deficit, Normal speech Results - Vitals Vitals: Vital Signs - 24 hr 01/29/19 01/29/19 15:46 18:41 Temperature 36.9 C 36.8 C Heart Rate 98 94 Respiratory 22 16 Rate Blood Pressure 153/91 H 148/78 H O2 Saturation 100 98 Oxygen O2 Source Room air PD MEDICAL DECISION MAKING - ED course Complexity details: considered differential (she seems anxious and is not expressing suicidal ideation nor intent. Has counseling appt tomorrow. ), d/w patient Departure - Departure Disposition: 01 Home, Self Care Clinical Impression: Nightmares, Anxiety Insomnia Qualifiers: Insomnia type: unspecified Qualified Code(s): G47.00 - Insomnia, unspecified Condition: Stable Record reviewed to determine appropriate education?: Yes Instructions: ED Stress React Follow-Up: FAYE LANDAVERDE DO [Primary Care Provider] - Prescriptions: Cholecalciferol (Vitamin D3) [Vitamin D] 2,000 unit PO DAILY #20 capsule LORazepam [Ativan] 1 mg PO QPM PRN #8 tablet PRN Reason: Insomnia Naproxen 375 mg PO BID #20 tablet Comments: Continue current medications. Add vitamin D daily which is a very simple way to help with depression and anxiety as well to supplement your other medicines. For sleep and anxiety, use Ativan at night half hour before bedtime see if that helps you get to sleep better. Follow-up with your counselor tomorrow morning as scheduled. Follow-up with your primary care in the next couple of days. Use naproxen twice daily for the next week to help with the chest discomfort which is likely musculoskeletal from the anxiety and trouble sleeping. This can be a common symptom related to stress. Your EKG is normal. Discharge Date/Time: 01/29/19 18:42
[2019-01-29] MEDS ORDERED: LORazepam 1 MG TABLET PO STA (18:26)
[2019-01-29] MEDS ORDERED: ACETAMINOPHEN 325 MG TABLET PO STA (18:29)
[2019-01-29] MEDS ORDERED: NAPROXEN 250 MG TABLET PO STA (18:29)
[2019-01-29 18:42] VITALS: BP 148/78
== END 2019-01-29 18:42 | disposition home or self-care (01) ==
LOC: ED 15:38
DX: F51.5 Nightmare disorder (principal); F41.9 Anxiety disorder, unspecified; G47.00 Insomnia, unspecified
CPT/HCPCS: 93005; 99283; A9270; J8499

== ENCOUNTER 2019-02-12 17:30 | Emergency (ER) | payer OTHER ==
--- NOTE | 2019-02-12 18:20 | ED Physician Documentation ---
PD HPI LOWER EXT INJURY - Stated complaint Stated Complaint: L KNEE AND ANKLE PX - Chief complaint Chief Complaint: Trauma Ext - History obtained from History obtained from: Patient - History of Present Illness PD HPI LOW EXT INJURY LOCATION: Other (23-year-old woman fell down stairs yesterday injuring her left ankle and knee. [place]. 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 : None HEENT: None Psych: Depression, Anxiety, Post traumatic stress disorder Musculoskeletal: Chronic back pain, Other Derm: Other - Past Surgical History Past Surgical History: Yes General: Colonoscopy, Other /MULTIMEDIA ASSISTANT: Endometrial ablation, Other - Present Medications Home Medications: Ambulatory Orders Medication Instructions Recorded Confirmed Minocycline HCl 1 cap PO BID 08/05/18 11/20/18 Venlafaxine ER [Effexor ER] 1 cap PO BID 08/05/18 11/20/18 busPIRone [Buspar] 15 mg PO BID 01/08/19 01/08/19 clonazePAM [Clonazepam] 0.5 mg PO 01/08/19 Cholecalciferol (Vitamin D3) 2,000 unit PO DAILY #20 capsule 01/29/19 [Vitamin D] LORazepam [Ativan] 1 mg PO QPM PRN #8 tablet 01/29/19 Naproxen 375 mg PO BID #20 tablet 01/29/19 - Allergies Allergies/Adverse Reactions: Allergies Allergy/AdvReac Type Severity Reaction Status Date / Time hydrocodone Allergy Itching Verified 02/12/19 17:35 - Social History Does the pt smoke?: Yes Smoking Status: Current every day smoker Does the pt drink ETOH?: No Does the pt have substance abuse?: No - Immunizations Immunizations are current?: Yes - POLST Patient has POLST: No PD ED PE NORMAL - Vitals Vital signs reviewed: Yes - General General: Alert and oriented X 3, No acute distress - Neck Neck: No bony TTP - Extremities Extremities: Other (Mild L knee medial joint line TTP but all ligmaments tight. Milt TTP over ATFL on L, no deformity or bony TTP. No foot TTp.) Results - Vitals Vitals: Vital Signs - 24 hr 02/12/19 17:35 Temperature 36.7 C Heart Rate 93 Respiratory 16 Rate Blood Pressure 125/75 O2 Saturation 99 Oxygen O2 Source Room air PD MEDICAL DECISION MAKING - ED course ED course: I do not see need to repeat x-rays [place] is just waiting for results. Based on my examination clinical suspicion for fracture is low, seems like a classic sprain although she cannot walk or bear weight. She is here mostly seeking a work note. Departure - Departure Disposition: Home, Self Care Clinical Impression: Sprain of ankle, left Qualifiers: Encounter type: initial encounter Involved ligament of ankle: anterior talofibular ligament Qualified Code(s): S93.492A - Sprain of other ligament of left ankle, initial encounter Condition: Good Record reviewed to determine appropriate education?: Yes Instructions: ED Sprain Ankle W X Ray Comments: [place]-rays. Return for new or worsening symptoms. Forms: Activity restrictions
[2019-02-12 18:39] VITALS: BP 138/89
== END 2019-02-12 18:36 | disposition home or self-care (01) ==
LOC: ED 17:30
DX: S93.492A Sprain of other ligament of left ankle, initial encounter (principal); W10.9XXA Fall (on) (from) unspecified stairs and steps, initial encounter; F17.200 Nicotine dependence, unspecified, uncomplicated
CPT/HCPCS: 99282; 99283

== ENCOUNTER 2019-07-01 00:15 | Emergency (ER) | payer OTHER ==
[2019-07-01 00:48] LABS: BILIRUBIN,URINE NEGATIVE (NEGATIVE); GLUCOSE, URINE (UA) NEGATIVE (NEGATIVE); KETONES,URINE (UA) NEGATIVE (NEGATIVE); LEUKOCYTE ESTERASE, URINE NEGATIVE (NEGATIVE); NITRITE,URINE NEGATIVE (NEGATIVE); OCCULT BLOOD,URINE NEGATIVE (NEGATIVE); PH,URINE 6.5 PH (5.0-7.5); PROTEIN,URINE NEGATIVE (NEGATIVE); UROBILINOGEN,URINE 0.2 (NORMAL) E.U./dL (NORMAL)
[2019-07-01 00:50] LABS: CLARITY,URINE CLEAR (CLEAR); HCG UR QUAL NEGATIVE
[2019-07-01 00:50] LABS: BASOPHILS # (AUTO) 0.1 10^3/uL (0.0-0.1); BASOPHILS % (AUTO) 0.7 %; EOSINOPHILS # (AUTO) 0.3 10^3/uL (0.0-0.7); EOSINOPHILS % (AUTO) 3.7 %; HGB - HEMOGLOBIN 14.5 g/dL (12.0-16.0); LYMPHOCYTES # (AUTO) 2.3 10^3/uL (1.5-3.5); MEAN CORPUSCULAR HEMOGLOBIN 32.9 pg (27.0-31.0); MEAN CORPUSCULAR HGB CONC 34.5 g/dL (32.0-36.0); MEAN CORPUSCULAR VOLUME 95.2 fL (81.0-99.0); MEAN PLATELET VOLUME 9.9 fL (7.9-10.8); MONOCYTES # (AUTO) 0.6 10^3/uL (0.0-1.0); MONOCYTES % (AUTO) 8.1 %; NEUTROPHILS # (AUTO) 4.1 10^3/uL (1.5-6.6); PLT - PLATELET COUNT 278 10^3/uL (130-450); RED BLOOD COUNT 4.41 10^6/uL (4.20-5.40); RED CELL DISTRIBUTION WIDTH 12.9 % (12.0-15.0); WHITE BLOOD COUNT 7.4 x10^3/uL (4.8-10.8)
[2019-07-01 01:03] LABS: ALBUMIN 3.7 g/dL (3.2-5.5); ALBUMIN/GLOBULIN RATIO 1.2 (1.0-2.2); BILIRUBIN,TOTAL 0.5 mg/dL (0.2-1.0); CALCIUM 8.8 mg/dL (8.5-10.3); CREATININE 0.7 mg/dL (0.4-1.0); TOTAL PROTEIN 6.8 g/dL (6.7-8.2)
[2019-07-01] MEDS ORDERED: ONDANSETRON ODT 4 MG TABLET TL STA (01:22)
[2019-07-01] MEDS ORDERED: oxyCODONE 5 MG TABLET PO STA (01:22)
--- NOTE | 2019-07-01 03:25 | Ultrasound Report ---
Reason: hx of ovarian cysts severe pain bilat Procedure Date: 07/01/2019 Accession Number: [id number] / [id number] Procedure: US - Pelvic w/Transvag+Doppler Ltd CPT Code: FULL RESULT: EXAM: PELVIC ULTRASOUND WITH DOPPLERS CLINICAL HISTORY: History of ovarian cysts, severe bilateral pain. COMPARISON: None. TECHNIQUE: Realtime transabdominal imaging performed to identify the uterus and adnexa and as an overview of other pelvic structures, followed by transvaginal imaging for better assessment of the endometrium and adnexa, with static image documentation. Color flow imaging and Doppler spectral analysis was performed to evaluate blood flow to the ovaries given pelvic pain and clinical concern for ovarian torsion. FINDINGS: Uterus: 7.3 x 3.2 x 4.3 cm, volume 52 cc. Anteverted position. Normal overall size and echotexture. Masses: None. Endometrium: 2.7 mm. Normal. Satisfactory appearance of IUD. Cervix: Unremarkable. Right Ovary: 2.4 x 1.3 x 1.9 cm, volume 3.1 cc. Dominant right ovary follicle is noted, measuring 13 mm. Normal echotexture. Arterial and venous blood flow are present. PSV 7.4 cm/sec. RI 0.7. Adnexa are unremarkable. Left Ovary: 2.0 x 1.3 x 1.6 cm, volume 2.4 cc. Normal echotexture. Arterial and venous blood flow are present. PSV 7.5 cm/sec. RI 0.6. Adnexa are unremarkable. Free Fluid: None. Other: None. IMPRESSION: 1. Normal pelvic ultrasound. 2. Arterial and venous blood flow are present to the ovaries bilaterally. 3. IUD in expected position. RADIA
[2019-07-01 03:30] VITALS: BP 157/99
--- NOTE | 2019-07-01 03:32 | ED Physician Documentation ---
PD HPI FEMALE - Stated complaint Stated Complaint: ABD PX N/V/DIZZY - Chief complaint Chief Complaint: Abd Pain - History obtained from History obtained from: Patient - History of Present Illness Timing - onset: How many weeks ago (2) Timing - duration: Weeks (2) Timing - details: Gradual onset, Still present, Waxing and waning Associated symptoms: Pelvic pain. 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 She has bilateral lower pelvic pain cramping that is severe. Tonight she is developed pain bad enough that she is developed vomiting as well. She is come to the emergency department for evaluation and she is requesting ultrasound be done. Review of Systems Constitutional: denies: Fever Eyes: denies: Decreased vision Ears: denies: Ear pain Nose: denies: Congestion Throat: denies: Sore throat Cardiac: denies: Chest pain / pressure, Palpitations Respiratory: denies: Dyspnea, Cough GI: reports: Abdominal Pain, Nausea, Vomiting. 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 : None HEENT: None Psych: Depression, Anxiety, Post traumatic stress disorder Musculoskeletal: Chronic back pain, Other Derm: Other - Past Surgical History Past Surgical History: Yes General: Colonoscopy, Other /CLINICAL LABORATORY SERVICE TEACHER: Endometrial ablation, Other - Present Medications Home Medications: Ambulatory Orders Medication Instructions Recorded Confirmed Venlafaxine ER [Effexor ER] 1 cap PO BID 08/05/18 11/20/18 Ondansetron Odt [Zofran] 4 mg TL Q6H PRN #10 tablet 07/01/19 Oxycodone HCl/Acetaminophen 1 - 2 each PO Q6H PRN #14 tablet 07/01/19 [Percocet 5-325 mg Tablet] Trazodone HCl 50 mg PO DAILY 07/01/19 07/01/19 - Allergies Allergies/Adverse Reactions: Allergies Allergy/AdvReac Type Severity Reaction Status Date / Time hydrocodone Allergy Itching Verified 07/01/19 00:23 - Social History Does the pt smoke?: Yes Smoking Status: Current every day smoker Does the pt drink ETOH?: No Does the pt have substance abuse?: No - Immunizations Immunizations are current?: Yes - POLST Patient has POLST: No PD ED PE NORMAL - Vitals Vital signs reviewed: Yes - General General: Alert and oriented X 3, Well developed/nourished, Other (appears to be in pain with mingler operator tone and flat affect) - HEENT HEENT: Atraumatic, PERRL, EOMI - Neck Neck: Supple, no meningeal sign, No bony TTP - Cardiac Cardiac: RRR, No murmur - Respiratory Respiratory: No respiratory distress, Clear bilaterally - Abdomen Abdomen: Normal bowel sounds, Soft, Non distended, No organomegaly, Other (supra pubic tenderness is mild ) - Back Back: No CVA TTP, No spinal TTP - Derm Derm: Normal color, Warm and dry, No rash - Extremities Extremities: No deformity, No edema, No calf tenderness / cord - Neuro Neuro: Alert and oriented X 3, apron operator 2-12 intact, No motor deficit, No sensory deficit, Normal speech Eye Opening: Spontaneous Motor: Obeys Commands Verbal: Oriented GCS Score: 15 - Psych Psych: Normal mood, Normal affect Results - Vitals Vitals: Vital Signs - 24 hr 07/01/19 07/01/19 00:20 03:28 Temperature 36.6 C 36.7 C Heart Rate 89 86 Respiratory 18 16 Rate Blood Pressure 155/103 H 157/99 H O2 Saturation 98 100 Oxygen O2 Source Room air - Labs Labs: Laboratory Tests 07/01/19 07/01/19 07/01/19 00:30 00:45 00:45 WBC 7.4 RBC 4.41 Hgb 14.5 Hct 42.0 MCV 95.2 MCH 32.9 H MCHC 34.5 RDW 12.9 Plt Count 278 MPV 9.9 Neut # (Auto) 4.1 Lymph # (Auto) 2.3 [place] # (Auto) 0.6 Eos # (Auto) 0.3 Baso # (Auto) 0.1 Absolute Nucleated RBC 0.00 Nucleated RBC % 0.0 Sodium 140 Potassium 3.9 Chloride 109 Carbon Dioxide 21 Anion Gap 10.0 BUN 9 Creatinine 0.7 Estimated GFR (MDRD) 105 Glucose 101 H Calcium 8.8 Total Bilirubin 0.5 AST 16 ALT 15 Alkaline Phosphatase 71 Total Protein 6.8 Albumin 3.7 Globulin 3.1 Albumin/Globulin Ratio 1.2 Lipase 26 Urine Color YELLOW Urine Clarity CLEAR Urine pH 6.5 Ur Specific [place] 1.015 Urine Protein NEGATIVE Urine Glucose (UA) NEGATIVE Urine Ketones NEGATIVE Urine Occult Blood NEGATIVE Urine Nitrite NEGATIVE Urine Bilirubin NEGATIVE Urine Urobilinogen 0.2 (NORMAL) Ur Leukocyte Esterase NEGATIVE Ur Microscopic Review NOT INDICATED Urine Culture Comments NOT INDICATED Urine HCG, Qual NEGATIVE - Rads (name of study) u/s pelvis Radiology: Prelim report reviewed (Impression: 1. Normal pelvic ultrasound. Arterial and venous blood flow are present to the ovaries bilaterally. IUD in expected position.), EMP read indepedently, See rad report Procedures - IVC sono (time) 0110 Bedside IVC sono: IVC measures (cm) (1,62), Euvolemia PD MEDICAL DECISION MAKING - ED course Complexity details: reviewed old records, reviewed results, re-evaluated rahel ent, considered differential, d/w patient ED course: 24-year-old female with a history of endometriosis and ovarian cysts has come in this morning with increased pain symptoms she associates with ovarian cyst and she is administered oxycodone 5 mg and Zofran 4 mg. She has been having vomiting with this she is not clinically dehydrated on interrogation of the inferior vena cava and she is requesting ultrasound. Ultrasound of the pelvis reveals no abnormality with normal ovaries and blood flow. I suspect the patient may be having an issue with endometriosis after going off of Depo- Lupron. She has an appointment to see her CLINICAL LABORATORY SERVICE TEACHER specialist in 2 days. We will provide some Zofran and oxycodone for the patient. Departure - Departure Disposition: 01 Home, Self Care Clinical Impression: Pelvic pain Condition: Stable Instructions: ED Pelvic Pain [facility] Follow-Up: FAYE LANDAVERDE DO [Primary Care Provider] - Prescriptions: Ondansetron Odt [Zofran] 4 mg TL Q6H PRN #10 tablet PRN Reason: Nausea / Vomiting Oxycodone HCl/Acetaminophen [Percocet 5-325 mg Tablet] 1 - 2 each PO Q6H PRN #14 tablet PRN Reason: pain
== END 2019-07-01 03:45 | disposition home or self-care (01) ==
LOC: ED 00:15
DX: R10.2 Pelvic and perineal pain (principal); F17.200 Nicotine dependence, unspecified, uncomplicated
CPT/HCPCS: 36415; 76830; 76856; 80053; 81003; 81025; 83690; 85025; 93976; 99284; A9270; Q0162; 81001; 87086

== ENCOUNTER 2019-07-16 13:59 | Emergency (ER) | payer OTHER ==
[2019-07-16 14:28] LABS: BILIRUBIN,URINE NEGATIVE (NEGATIVE); GLUCOSE, URINE (UA) NEGATIVE (NEGATIVE); KETONES,URINE (UA) NEGATIVE (NEGATIVE); LEUKOCYTE ESTERASE, URINE NEGATIVE (NEGATIVE); NITRITE,URINE NEGATIVE (NEGATIVE); OCCULT BLOOD,URINE NEGATIVE (NEGATIVE); PH,URINE 6.5 PH (5.0-7.5); PROTEIN,URINE NEGATIVE (NEGATIVE); UROBILINOGEN,URINE 0.2 (NORMAL) E.U./dL (NORMAL)
[2019-07-16 14:31] LABS: CLARITY,URINE CLEAR (CLEAR); HCG UR QUAL NEGATIVE
[2019-07-16 14:31] LABS: BASOPHILS % (AUTO) 0.5 %; EOSINOPHILS # (AUTO) 0.2 10^3/uL (0.0-0.7); EOSINOPHILS % (AUTO) 3.1 %; HGB - HEMOGLOBIN 14.1 g/dL (12.0-16.0); LYMPHOCYTES # (AUTO) 1.5 10^3/uL (1.5-3.5); LYMPHOCYTES % (AUTO) 25.9 %; MEAN CORPUSCULAR HEMOGLOBIN 33.2 pg (27.0-31.0); MEAN CORPUSCULAR HGB CONC 35.2 g/dL (32.0-36.0); MEAN CORPUSCULAR VOLUME 94.4 fL (81.0-99.0); MEAN PLATELET VOLUME 10.1 fL (7.9-10.8); MONOCYTES # (AUTO) 0.4 10^3/uL (0.0-1.0); MONOCYTES % (AUTO) 6.5 %; NEUTROPHILS # (AUTO) 3.7 10^3/uL (1.5-6.6); NEUTROPHILS % (AUTO) 63.7 %; PLT - PLATELET COUNT 291 10^3/uL (130-450); RED BLOOD COUNT 4.25 10^6/uL (4.20-5.40); RED CELL DISTRIBUTION WIDTH 12.4 % (12.0-15.0); WHITE BLOOD COUNT 5.9 x10^3/uL (4.8-10.8)
[2019-07-16 14:46] LABS: ALBUMIN 4.2 g/dL (3.2-5.5); ALBUMIN/GLOBULIN RATIO 1.4 (1.0-2.2); BILIRUBIN,TOTAL 0.3 mg/dL (0.2-1.0); CALCIUM 9.3 mg/dL (8.5-10.3); CREATININE 0.8 mg/dL (0.4-1.0); TOTAL PROTEIN 7.1 g/dL (6.7-8.2)
--- NOTE | 2019-07-16 16:00 | ED Physician Documentation ---
PD HPI ABD PAIN - Stated complaint Stated Complaint: FEM - Chief complaint Chief Complaint: Abd Pain - History obtained from History obtained from: Patient - History of Present Illness Timing - onset: Yesterday (Young lady with anxiety, PTSD, and depression who has ongoing issues with endometriosis causing chronic pelvic pain. For the last 2 days she has had some loose stools with bright red blood per rectum abdominal bloating and cramping. She had a colonoscopy a few years ago with only finding of a polyp.) Review of Systems Constitutional: reports: Fatigue, Other (Weights been vacillating but pretty much stable within 5 pounds or so). denies: Fever, Chills GI: reports: Abdominal Pain, Nausea, Diarrhea, Bloody / black stool. denies: Vomiting, Constipation : denies: Dysuria, Frequency PD PAST MEDICAL HISTORY - Past Medical History Cardiovascular: None Respiratory: None Neuro: Migraines Endocrine/Autoimmune: None GI: None FLOOR REPRESENTATIVE: Endometriosis : None HEENT: None Psych: Depression, Anxiety, Post traumatic stress disorder Musculoskeletal: Chronic back pain, Other Derm: Other - Past Surgical History Past Surgical History: Yes General: Colonoscopy, Other /FLOOR REPRESENTATIVE: Endometrial ablation, Other - Present Medications Home Medications: Ambulatory Orders Medication Instructions Recorded Confirmed Venlafaxine ER [Effexor ER] 1 cap PO BID 08/05/18 11/20/18 Ondansetron Odt [Zofran] 4 mg TL Q6H PRN #10 tablet 07/01/19 Oxycodone HCl/Acetaminophen 1 - 2 each PO Q6H PRN #14 tablet 07/01/19 [Percocet 5-325 mg Tablet] Trazodone HCl 50 mg PO DAILY 07/01/19 07/01/19 - Allergies Allergies/Adverse Reactions: Allergies Allergy/AdvReac Type Severity Reaction Status Date / Time hydrocodone Allergy Itching Verified 07/01/19 00:23 - Social History Does the pt smoke?: Yes Smoking Status: Current every day smoker Does the pt drink ETOH?: No Does the pt have substance abuse?: No - Immunizations Immunizations are current?: Yes - POLST Patient has POLST: No PD ED PE NORMAL - Vitals Vital signs reviewed: Yes - General General: Alert and oriented X 3, No acute distress - Abdomen Abdomen: Normal bowel sounds, Soft, Non tender - 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[employer]), Other (No external hemorrhoids or obvious blood per rectum) - Extremities Extremities: No edema, No calf tenderness / cord - Neuro Neuro: Alert and oriented X 3, Normal speech Results - Vitals Vitals: Vital Signs - 24 hr 07/16/19 14:09 Temperature 36.4 C L Heart Rate 88 Respiratory 18 Rate Blood Pressure 125/87 H O2 Saturation 100 Oxygen O2 Source Room air - Labs Labs: Laboratory Tests 07/16/19 07/16/19 07/16/19 14:20 14:27 14:27 WBC 5.9 RBC 4.25 Hgb 14.1 Hct 40.1 MCV 94.4 MCH 33.2 H MCHC 35.2 RDW 12.4 Plt Count 291 MPV 10.1 Neut # (Auto) 3.7 Lymph # (Auto) 1.5 [place] # (Auto) 0.4 Eos # (Auto) 0.2 Baso # (Auto) 0.0 Absolute Nucleated RBC 0.00 Nucleated RBC % 0.0 Sodium 139 Potassium 3.8 Chloride 102 Carbon Dioxide 27 Anion Gap 10.0 BUN 13 Creatinine 0.8 Estimated GFR (MDRD) 90 Glucose 82 Calcium 9.3 Total Bilirubin 0.3 AST 18 ALT 19 Alkaline Phosphatase 57 Total Protein 7.1 Albumin 4.2 Globulin 2.9 Albumin/Globulin Ratio 1.4 Lipase 33 Urine Color YELLOW Urine Clarity CLEAR Urine pH 6.5 Ur Specific Bellamy 1.010 Urine Protein NEGATIVE Urine Glucose (UA) NEGATIVE Urine Ketones NEGATIVE Urine Occult Blood NEGATIVE Urine Nitrite NEGATIVE Urine Bilirubin NEGATIVE Urine Urobilinogen 0.2 (NORMAL) Ur Leukocyte Esterase NEGATIVE Ur Microscopic Review NOT INDICATED Urine Culture Comments NOT INDICATED Urine HCG, Qual NEGATIVE PD MEDICAL DECISION MAKING - ED course ED course: This is a young lady with some bright red blood per rectum with some diarrhea. Lab work would suggest against an infectious cause. Could be inflammatory bowel disease. Follow-up with her PCP for colonoscopy referral was advised. Departure - Departure Disposition: 01 Home, Self Care Clinical Impression: Hematochezia Condition: Good Record reviewed to determine appropriate education?: Yes Instructions: ED Abdominal Pain Unkn Cause Comments: Return for new or worsening symptoms. Follow-up with your doctor and discuss referral for colonoscopy given your symptoms. Your lab work is all normal.
[2019-07-16 16:08] VITALS: BP 122/78
== END 2019-07-16 16:07 | disposition home or self-care (01) ==
LOC: ED 13:59
DX: K92.1 Melena (principal); R10.2 Pelvic and perineal pain; Z86.010 Personal history of colon polyps; F17.200 Nicotine dependence, unspecified, uncomplicated
CPT/HCPCS: 36415; 80053; 81001; 81003; 81025; 83690; 85025; 87086; 99283

== ENCOUNTER 2019-08-12 01:19 | Emergency (ER) | payer OTHER ==
[2019-08-12 01:53] LABS: BILIRUBIN,URINE NEGATIVE (NEGATIVE); GLUCOSE, URINE (UA) NEGATIVE (NEGATIVE); KETONES,URINE (UA) NEGATIVE (NEGATIVE); LEUKOCYTE ESTERASE, URINE NEGATIVE (NEGATIVE); NITRITE,URINE NEGATIVE (NEGATIVE); OCCULT BLOOD,URINE NEGATIVE (NEGATIVE); PH,URINE 6.5 PH (5.0-7.5); PROTEIN,URINE NEGATIVE (NEGATIVE); UROBILINOGEN,URINE 1 (NORMAL) E.U./dL (NORMAL)
[2019-08-12 01:55] LABS: CLARITY,URINE CLEAR (CLEAR); HCG UR QUAL NEGATIVE
[2019-08-12 02:18] LABS: BASOPHILS % (AUTO) 0.4 %; EOSINOPHILS # (AUTO) 0.1 10^3/uL (0.0-0.7); EOSINOPHILS % (AUTO) 1.6 %; LYMPHOCYTES % (AUTO) 27.6 %; MEAN CORPUSCULAR HEMOGLOBIN 32.3 pg (27.0-31.0); MEAN CORPUSCULAR HGB CONC 33.7 g/dL (32.0-36.0); MEAN PLATELET VOLUME 9.9 fL (7.9-10.8); MONOCYTES # (AUTO) 0.8 10^3/uL (0.0-1.0); MONOCYTES % (AUTO) 10.6 %; NEUTROPHILS # (AUTO) 4.2 10^3/uL (1.5-6.6); NEUTROPHILS % (AUTO) 59.2 %; PLT - PLATELET COUNT 244 10^3/uL (130-450); RED BLOOD COUNT 4.02 10^6/uL (4.20-5.40); RED CELL DISTRIBUTION WIDTH 12.2 % (12.0-15.0); WHITE BLOOD COUNT 7.1 x10^3/uL (4.8-10.8)
[2019-08-12 02:31] LABS: ALBUMIN 3.9 g/dL (3.2-5.5); ALBUMIN/GLOBULIN RATIO 1.3 (1.0-2.2); CALCIUM 9.1 mg/dL (8.5-10.3); CREATININE 0.6 mg/dL (0.4-1.0); TOTAL PROTEIN 6.9 g/dL (6.7-8.2)
--- NOTE | 2019-08-12 02:51 | ED Physician Documentation ---
History of Present Illness - Stated complaint Stated Complaint: ABD PX/COUGH/CONGESTION - Chief complaint Chief Complaint: Abd Pain - History obtained from History obtained from: Patient - History of Present Illness Timing: How many weeks ago (1) Improved by: nothing Worsened by: no exacerbating factors - Additonal information Additional information: multiple c/o that have been present for 7-10 days. weak and lethargic, sinus congestion, cough, sore throat, abdominal cramping, vaginal discharge (last week, resolved), urinary frequency, back pain, diarrhea. she was seen at [facility] last week and prescribed macrobid, completed 5 day course. patient has many [facility] ED visits (this is her 10th [facility] ED visit 2019, and she had 8 in 2018). Review of Systems Constitutional: reports: Fatigue. denies: Fever, Chills, Sweats Nose: reports: Rhinorrhea / runny nose, Congestion, Sinus pressure / pain Throat: reports: Sore throat Cardiac: reports: Reviewed and negative Respiratory: reports: Cough. 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 : None HEENT: None Psych: Depression, Anxiety, Post traumatic stress disorder Musculoskeletal: Chronic back pain, Other Derm: Other - Past Surgical History Past Surgical History: Yes General: Colonoscopy, Other /FACILITIES MANAGEMENT EXECUTIVE: Endometrial ablation, Other - Present Medications Home Medications: Ambulatory Orders Medication Instructions Recorded Confirmed Venlafaxine ER [Effexor ER] 1 cap PO BID 08/05/18 11/20/18 Ondansetron Odt [Zofran] 4 mg TL Q6H PRN #10 tablet 07/01/19 Oxycodone HCl/Acetaminophen 1 - 2 each PO Q6H PRN #14 tablet 07/01/19 [Percocet 5-325 mg Tablet] Trazodone HCl 50 mg PO DAILY 07/01/19 07/01/19 - Allergies Allergies/Adverse Reactions: Allergies Allergy/AdvReac Type Severity Reaction Status Date / Time hydrocodone Allergy Itching Verified 07/01/19 00:23 - Social History Does the pt smoke?: Yes Smoking Status: Current every day smoker Does the pt drink ETOH?: No Does the pt have substance abuse?: No - Immunizations Immunizations are current?: Yes - POLST Patient has POLST: No PD ED PE NORMAL - Vitals Vital signs reviewed: Yes - General General: Alert and oriented X 3, No acute distress, Well developed/nourished - HEENT HEENT: Moist mucous membranes, Pharynx benign - Neck Neck: Supple, no meningeal sign - Cardiac Cardiac: RRR, No murmur - Respiratory Respiratory: No respiratory distress, Clear bilaterally - Abdomen Abdomen: Normal bowel sounds, Soft, Non tender, Non distended - Derm Derm: Normal color, Warm and dry Results - Vitals Vitals: Oxygen O2 Source Room air - Labs Labs: Laboratory Tests 08/12/19 08/12/19 08/12/19 01:40 01:40 01:40 WBC 7.1 RBC 4.02 L Hgb 13.0 Hct 38.6 MCV 96.0 MCH 32.3 H MCHC 33.7 RDW 12.2 Plt Count 244 MPV 9.9 Neut # (Auto) 4.2 Lymph # (Auto) 2.0 [place] # (Auto) 0.8 Eos # (Auto) 0.1 Baso # (Auto) 0.0 Absolute Nucleated RBC 0.00 Nucleated RBC % 0.0 Sodium 138 Potassium 3.4 L Chloride 103 Carbon Dioxide 26 Anion Gap 9.0 BUN 15 Creatinine 0.6 Estimated GFR (MDRD) 125 Glucose 103 H Calcium 9.1 Total Bilirubin 1.0 AST 19 ALT 21 Alkaline Phosphatase 57 Total Protein 6.9 Albumin 3.9 Globulin 3.0 Albumin/Globulin Ratio 1.3 Lipase 34 Urine Color YELLOW Urine Clarity CLEAR Urine pH 6.5 Ur Specific [place] 1.020 Urine Protein NEGATIVE Urine Glucose (UA) NEGATIVE Urine Ketones NEGATIVE Urine Occult Blood NEGATIVE Urine Nitrite NEGATIVE Urine Bilirubin NEGATIVE Urine Urobilinogen 1 (NORMAL) Ur Leukocyte Esterase NEGATIVE Ur Microscopic Review NOT INDICATED Urine Culture Comments NOT INDICATED Urine HCG, Qual 08/12/19 01:40 WBC RBC Hgb Hct MCV MCH MCHC RDW Plt Count MPV Neut # (Auto) Lymph # (Auto) [place] # (Auto) Eos # (Auto) Baso # (Auto) Absolute Nucleated RBC Nucleated RBC % Sodium Potassium Chloride Carbon Dioxide Anion Gap BUN Creatinine Estimated GFR (MDRD) Glucose Calcium Total Bilirubin AST ALT Alkaline Phosphatase Total Protein Albumin Globulin Albumin/Globulin Ratio Lipase Urine Color Urine Clarity Urine pH Ur Specific [place] 1.020 Urine Protein Urine Glucose (UA) Urine Ketones Urine Occult Blood Urine Nitrite Urine Bilirubin Urine Urobilinogen Ur Leukocyte Esterase Ur Microscopic Review Urine Culture Comments Urine HCG, Qual NEGATIVE PD MEDICAL DECISION MAKING - ED course Complexity details: reviewed results, re-evaluated patient, considered differential, d/w patient Departure - Departure Disposition: 01 Home, Self Care Clinical Impression: Pelvic pain Upper respiratory infection Qualifiers: URI type: unspecified viral URI Qualified Code(s): J06.9 - Acute upper respiratory infection, unspecified Instructions: ED Pelvic Pain UKO, ED URI Viral Follow-Up: FAYE LANDAVERDE DO [Primary Care Provider] - Discharge Date/Time: 08/12/19 03:52
[2019-08-12] MEDS ORDERED: KETOROLAC 30 MG/ML VIAL IVP STA (03:21)
[2019-08-12] MEDS ORDERED: oxyCODONE 5 MG TABLET PO STA (03:21)
[2019-08-12] MEDS ORDERED: oxyCODONE/ACET 5/325 Prepack 4 PO STA (03:21)
[2019-08-12 03:35] VITALS: BP 114/81
== END 2019-08-12 03:52 | disposition home or self-care (01) ==
LOC: ED 01:19
DX: J06.9 Acute upper respiratory infection, unspecified (principal); R10.2 Pelvic and perineal pain; F17.200 Nicotine dependence, unspecified, uncomplicated
CPT/HCPCS: 36415; 80053; 81003; 81025; 83690; 85025; 96374; 99282; 99283; A9270; 81001; 87086

== ENCOUNTER 2019-08-24 12:42 | Emergency (ER) | payer OTHER ==
[2019-08-24 14:01] LABS: BASOPHILS % (AUTO) 0.7 %; LYMPHOCYTES # (AUTO) 1.1 10^3/uL (1.5-3.5); MEAN CORPUSCULAR HEMOGLOBIN 31.4 pg (27.0-31.0); MEAN CORPUSCULAR HGB CONC 33.8 g/dL (32.0-36.0); MEAN PLATELET VOLUME 10.4 fL (7.9-10.8); MONOCYTES # (AUTO) 0.3 10^3/uL (0.0-1.0); MONOCYTES % (AUTO) 9.8 %; NEUTROPHILS # (AUTO) 1.6 10^3/uL (1.5-6.6); NEUTROPHILS % (AUTO) 53.2 %; PLT - PLATELET COUNT 259 10^3/uL (130-450); RED BLOOD COUNT 4.14 10^6/uL (4.20-5.40); RED CELL DISTRIBUTION WIDTH 12.4 % (12.0-15.0); WHITE BLOOD COUNT 3.1 x10^3/uL (4.8-10.8)
--- NOTE | 2019-08-24 14:02 | ED Physician Documentation ---
PD HPI FEMALE - Stated complaint Stated Complaint: FEMALE - Chief complaint Chief Complaint: General - History obtained from History obtained from: Patient - History of Present Illness Timing - onset: How many days ago (3) Timing - duration: Days (3) Timing - details: Abrupt onset, Still present (onset of cramping lower abd pain, mostly midline but slightly to left, associated with continued brisk vaginal bleeding, saturating a pad or tampon every 2-3 hours for the 3 days.) Associated symptoms: Pelvic pain (cramping midline to slight left), Vaginal bleeding. 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 ED visit month ago for bloody stools and possible colitis, does not mention miscarriage.) Similar symptoms before: Diagnosis (endometriosis with pelvic pain. No prior heavy periods comparably.) Recently seen: Emergency Dept (2 weeks ago for URI. month ago for GI symptoms.) Review of Systems Constitutional: denies: Fever, Chills, Myalgias Nose: denies: Rhinorrhea / runny nose, Congestion Throat: denies: Sore throat Respiratory: denies: Cough GI: reports: Abdominal Pain, Nausea. denies: Vomiting, Diarrhea : reports: Vaginal bleeding. denies: Dysuria, Frequency, Discharge Skin: denies: Rash Neurologic: reports: Generalized weakness. 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 PRESS HELPER: Endometriosis : None HEENT: None Psych: Depression, Anxiety, Post traumatic stress disorder Musculoskeletal: Chronic back pain, Other Derm: Other - Past Surgical History Past Surgical History: Yes General: Colonoscopy, Other /SPAGHETTI PRESS HELPER: Endometrial ablation, Other - Present Medications Home Medications: Ambulatory Orders Medication Instructions Recorded Confirmed Venlafaxine ER [Effexor ER] 1 cap PO BID 08/05/18 11/20/18 Ondansetron Odt [Zofran] 4 mg TL Q6H PRN #10 tablet 07/01/19 Oxycodone HCl/Acetaminophen 1 - 2 each PO Q6H PRN #14 tablet 07/01/19 [Percocet 5-325 mg Tablet] Trazodone HCl 50 mg PO DAILY 07/01/19 07/01/19 Naproxen 375 mg PO BID #20 tablet 08/24/19 Norethindrone AC-Eth Estradiol 1 each PO DAILY #1 packet 08/24/19 [Loestrin 21 1-20 Tablet] Oxycodone HCl/Acetaminophen 1 each PO Q6H PRN #12 tablet 08/24/19 [Percocet 5-325 mg Tablet] - Allergies Allergies/Adverse Reactions: Allergies Allergy/AdvReac Type Severity Reaction Status Date / Time hydrocodone Allergy Itching Verified 07/01/19 00:23 - Social History Does the pt smoke?: Yes Smoking Status: Current every day smoker Does the pt drink ETOH?: No Does the pt have substance abuse?: No - Immunizations Immunizations are current?: Yes - POLST Patient has POLST: No PD ED PE NORMAL - Vitals Vital signs reviewed: Yes - General General: Alert and oriented X 3, Well developed/nourished, Other (appears in pain) - Neck Neck: Supple, no meningeal sign, No adenopathy - Cardiac Cardiac: RRR, No murmur - Respiratory Respiratory: Clear bilaterally - Abdomen Abdomen: Normal bowel sounds, Soft, Non distended, No organomegaly, Other (tender suprapubic area and left lower. guarding midline. No percussion nor rebound. ) - Female Female : Deferred - Back Back: No CVA TTP - Derm Derm: Normal color, Warm and dry - Extremities Extremities: Normal ROM s pain Results - Vitals Vitals: Vital Signs - 24 hr 08/24/19 08/24/19 08/24/19 12:47 15:28 16:45 Temperature 36.7 C Heart Rate 92 86 81 Respiratory 18 18 18 Rate Blood Pressure 106/78 119/77 118/74 O2 Saturation 100 100 100 08/24/19 17:24 Temperature Heart Rate 75 Respiratory 16 Rate Blood Pressure 114/80 O2 Saturation 100 Oxygen O2 Source Room air - Labs Labs: Laboratory Tests 08/24/19 08/24/19 08/24/19 13:54 13:54 13:54 WBC 3.1 L RBC 4.14 L Hgb 13.0 Hct 38.5 MCV 93.0 MCH 31.4 H MCHC 33.8 RDW 12.4 Plt Count 259 MPV 10.4 Neut # (Auto) 1.6 Lymph # (Auto) 1.1 L Leslie # (Auto) 0.3 Eos # (Auto) 0.0 Baso # (Auto) 0.0 Absolute Nucleated RBC 0.00 Nucleated RBC % 0.0 Manual Slide Review Indicated Platelet Estimate NORMAL (130-450,000) RBC Morph Micro Appear NORMAL APPEARANCE Sodium 141 Potassium 3.8 Chloride 108 Carbon Dioxide 24 Anion Gap 9.0 BUN 5 L Creatinine 0.6 Estimated GFR (MDRD) 125 Glucose 89 Calcium 8.9 Total Bilirubin 0.6 AST 24 ALT 32 Alkaline Phosphatase 60 Total Protein 7.4 Albumin 4.3 Globulin 3.1 Albumin/Globulin Ratio 1.4 Lipase 32 HCG, Quant < 0.60 Blood Type Antibody Screen 08/24/19 13:54 WBC RBC Hgb Hct MCV MCH MCHC RDW Plt Count MPV Neut # (Auto) Lymph # (Auto) Leslie # (Auto) Eos # (Auto) Baso # (Auto) Absolute Nucleated RBC Nucleated RBC % Manual Slide Review Platelet Estimate RBC Morph Micro Appear Sodium Potassium Chloride Carbon Dioxide Anion Gap BUN Creatinine Estimated GFR (MDRD) Glucose Calcium Total Bilirubin AST ALT Alkaline Phosphatase Total Protein Albumin Globulin Albumin/Globulin Ratio Lipase HCG, Quant Blood Type O POSITIVE Antibody Screen NEGATIVE - Rads (name of study) pelvic U/S Radiology: Prelim report reviewed (no acute process), See rad report PD MEDICAL DECISION MAKING - ED course Complexity details: reviewed results (U/S is okay. So likely hormonal DUB and can treat with estrogen/OCP per UpToDate. ), re-evaluated patient (Feeling improved with IM meds (difficult IV access to changed IV to IM). ), considered differential (given report of recent miscarriage, and now heavy bleeding, most likely next menses, but could consider retained products. I don't see ER visit for the miscarriage, but U/S is still reasonable. Can be DUB. Get labs to ensure adequate blood count. ), d/w patient Departure - Departure Disposition: 01 Home, Self Care Clinical Impression: Dysfunctional uterine bleeding, Pelvic pain Condition: Stable Record reviewed to determine appropriate education?: Yes Instructions: ED Bleed Irregular Vaginal Follow-Up: FAYE LANDAVERDE DO [Primary Care Provider] - Prescriptions: Naproxen 375 mg PO BID #20 tablet Norethindrone AC-Eth Estradiol [Loestrin 21 1-20 Tablet] 1 each PO DAILY #1 packet Oxycodone HCl/Acetaminophen [Percocet 5-325 mg Tablet] 1 each PO Q6H PRN #12 tablet PRN Reason: pain Comments: Your ultrasound appeared normal. Presume we can treat this hormonally with estrogen initially. Get the oral contraceptive packet and take 3 tablets the first day and then 2 tablets daily for 2 more days. This should decrease the degree of bleeding. Then continue with the oral contraceptive packet for the rest of the duration. For the pains use naproxen anti-inflammatory twice daily for the next 7 to 10 days. Add Tylenol or pain medicine if needed for pains. Follow-up with your primary care or Gynecology this coming week, call for an appointment. Discharge Date/Time: 08/24/19 17:38
[2019-08-24 14:12] LABS: ALBUMIN 4.3 g/dL (3.2-5.5); ALBUMIN/GLOBULIN RATIO 1.4 (1.0-2.2); BILIRUBIN,TOTAL 0.6 mg/dL (0.2-1.0); CALCIUM 8.9 mg/dL (8.5-10.3); CREATININE 0.6 mg/dL (0.4-1.0); TOTAL PROTEIN 7.4 g/dL (6.7-8.2)
[2019-08-24 14:22] LABS: PLATELET ESTIMATE, MANUAL NORMAL (130-450,000) (NORMAL)
[2019-08-24 14:23] LABS: RBC MORPHOLOGY (MULTIPLE) NORMAL APPEARANCE (NORMAL)
[2019-08-24] MEDS ORDERED: MORPHINE 10 MG/ML VIAL IVP STA (14:40)
[2019-08-24] MEDS ORDERED: ONDANSETRON 4 MG/2 ML VIAL IVP STA (14:40)
[2019-08-24] MEDS ORDERED: NORGESTREL-ETHINYL ESTRADIOL TABLET PO STA (14:40)
[2019-08-24] MEDS ORDERED: KETOROLAC 15 MG/ML VIAL IVP STA (14:40)
[2019-08-24] MEDS ORDERED: SODIUM CHLORIDE 0.9% 1,000 ML IV ONE (14:40)
[2019-08-24] MEDS ORDERED: MORPHINE 10 MG/ML VIAL IM STA (15:16)
[2019-08-24] MEDS ORDERED: ONDANSETRON 4 MG/2 ML VIAL IM STA (15:16)
--- NOTE | 2019-08-24 16:57 | Ultrasound Report ---
Reason: heavy vag bleeding 3 days Procedure Date: 08/24/2019 Accession Number: [id number] / [id number] Procedure: US - Pelvic w/Transvag+Doppler Ltd CPT Code: FULL RESULT: EXAM: PELVIC ULTRASOUND WITH DOPPLERS CLINICAL HISTORY: Heavy vag bleeding 3 days. COMPARISON: PEL NON OB W/TV DOP LTD 07/01/2019 2:08 AM TECHNIQUE: Realtime transabdominal imaging performed to identify the uterus and adnexa and as an overview of other pelvic structures, followed by transvaginal imaging for better assessment of the endometrium and adnexa, with static image documentation. Color flow imaging and Doppler spectral analysis was performed to evaluate blood flow to the ovaries given pelvic pain . FINDINGS: Uterus: 7.8 x 2.9 x 4.1 cm, volume 48.1 cc. Anteverted position. Normal size. Heterogeneous echogenicity of the myometrium. Masses: No focal uterine masses are seen. Endometrium: 3 mm. Overall normal thickness of the endometrium. Trace fluid in the endometrial canal. Tiny 0.2 cm cyst is seen abutting the endometrium. Cervix: Unremarkable. Right Ovary: 3 x 2.2 x 2.2 cm, volume 7.5 cc. Normal echotexture. Arterial and venous blood flow are present. PSV 10.8 cm/sec. RI 0.6. Adnexa are unremarkable. Left Ovary: 3.4 x 1.4 x 2.7 cm, volume 6.7 cc. Normal echotexture. Arterial and venous blood flow are present. PSV 6.3 cm/sec. RI 0.7. Adnexa are unremarkable. Free Fluid: None. Other: None. IMPRESSION: 1. Normal thickness of the endometrium. Tiny 0.2 cm endometrial cyst is seen. 2. Arterial and venous blood flow are present to the ovaries bilaterally. No sonographic evidence for ovarian torsion. 3. No free pelvic fluid is seen. RADIA
[2019-08-24] MEDS ORDERED: HYDROmorphone 1 MG/ML CARPUJECT IM STA (17:02)
[2019-08-24 17:24] VITALS: BP 114/80
== END 2019-08-24 17:38 | disposition home or self-care (01) ==
LOC: ED 12:42
DX: N93.8 Other specified abnormal uterine and vaginal bleeding (principal); R10.2 Pelvic and perineal pain; Z87.59 Personal history of other complications of pregnancy, childbirth and the puerperium; F17.200 Nicotine dependence, unspecified, uncomplicated
CPT/HCPCS: 36415; 76830; 76856; 80053; 83690; 84702; 85025; 86850; 86900; 86901; 93976; 96372; 99284; 99285; J1170; S4993

== ENCOUNTER 2019-09-04 15:47 | Emergency (ER) | payer OTHER ==
[2019-09-04 15:55] VITALS: BP 123/81
[2019-09-04] MEDS ORDERED: cephALEXin 250 MG CAPSULE PO STA (16:27)
--- NOTE | 2019-09-04 16:31 | ED Physician Documentation ---
History of Present Illness - Stated complaint Stated Complaint: INSECT BITE - Chief complaint Chief Complaint: Wound - Additonal information Additional information: This is a 24-year-old female who presents with some swelling on her cheek and below her right eye. Patient noticed little pustule on her cheek earlier in the day, She squeezed it and was able to remove some pus, however afterwards she developed some redness and swelling in the area area that extended towards her lower eyelid. She called her primary care office and they stated because it was near her right eye they would like her to be seen In the emergency department. She denies any fever or vision changes. She took some Benadryl and did seem to improve the swelling. She still does have some tenderness over the right cheek. She did not actually see any insect or spider, but she was wondering if this was due to a spider bite. Review of Systems Constitutional: denies: Fever Eyes: denies: Loss of vision Skin: reports: Other (redness of R cheek) PD PAST MEDICAL HISTORY - Past Medical History Cardiovascular: None Respiratory: None Neuro: Migraines Endocrine/Autoimmune: None GI: None BRIM FLEXER: Endometriosis : None HEENT: None Psych: Depression, Anxiety, Post traumatic stress disorder Musculoskeletal: Chronic back pain, Other Derm: Other - Past Surgical History Past Surgical History: Yes General: Colonoscopy, Other /BRIM FLEXER: Endometrial ablation, Other - Present Medications Home Medications: Ambulatory Orders Medication Instructions Recorded Confirmed Venlafaxine ER [Effexor ER] 1 cap PO BID 08/05/18 11/20/18 Ondansetron Odt [Zofran] 4 mg TL Q6H PRN #10 tablet 07/01/19 Oxycodone HCl/Acetaminophen 1 - 2 each PO Q6H PRN #14 tablet 07/01/19 [Percocet 5-325 mg Tablet] Trazodone HCl 50 mg PO DAILY 07/01/19 07/01/19 Naproxen 375 mg PO BID #20 tablet 08/24/19 Norethindrone AC-Eth Estradiol 1 each PO DAILY #1 packet 08/24/19 [Loestrin 21 1-20 Tablet] Oxycodone HCl/Acetaminophen 1 each PO Q6H PRN #12 tablet 08/24/19 [Percocet 5-325 mg Tablet] Cephalexin [Keflex] 500 mg PO Q6H #28 capsule 09/04/19 - Allergies Allergies/Adverse Reactions: Allergies Allergy/AdvReac Type Severity Reaction Status Date / Time hydrocodone Allergy Itching Verified 09/04/19 15:50 - Social History Does the pt smoke?: Yes Smoking Status: Current every day smoker Does the pt drink ETOH?: No Does the pt have substance abuse?: No - Immunizations Immunizations are current?: Yes - POLST Patient has POLST: No PD ED PE NORMAL - Vitals Vital signs reviewed: Yes - HEENT HEENT: Other (1 cm diameter area of induration over the right cheek with central crusting. There is no fluctuance, no purulent drainage. There is mild erythema surrounding this about 1.5 cm in diameter. The lower eyelid appears normal, there is no significant involvement of the orbital tissue. Normal extraocular movements with painless movement.) - Cardiac Cardiac: Other (Well-perfused extremities) - Respiratory Respiratory: No respiratory distress - Neuro Neuro: Alert and oriented X 3 - Psych Psych: Normal mood, Normal affect Results - Vitals Vitals: Vital Signs - 24 hr 09/04/19 15:50 Temperature 37.1 C Heart Rate 80 Respiratory 14 Rate Blood Pressure 123/81 H O2 Saturation 100 Oxygen O2 Source Room air PD MEDICAL DECISION MAKING - ED course Complexity details: considered differential (Cellulitis, abscess, insect bite, infected cyst) ED course: On exam patient is well-appearing, she has an isolated area of erythema and induration on her right cheek, which is very localized. There is no fluctuance, no signs of abscess, and patient states that the small amount of purulence that was there is drained when she squeezed that it. Redness does not extend to her eyelid, she haS normal painless movement of her eyes, no signs of a significant orbital infection at this time. Given that she does have some erythema in the region, we will treat for cellulitis with a course of Keflex, the first dose was given here. I discussed return precautions including pain around her eye or vision changes, fever, or if she is having more swelling or worsening in this region. I also discussed that she can use warm compresses but should not pick at the wound, as this can lead to more complications. Patient is in agreement with the plan and was discharged home Departure - Departure Disposition: 01 Home, Self Care Clinical Impression: Cellulitis Qualifiers: Site of cellulitis: face Qualified Code(s): L03.211 - Cellulitis of face Condition: Good Instructions: ED Cellulitis Facial Follow-Up: FAYE LANDAVERDE DO [Primary Care Provider] - As Needed (With any persistent or worsening symptoms) Prescriptions: Cephalexin [Keflex] 500 mg PO Q6H #28 capsule Comments: You do appear to have a skin infection on your cheek, which is causing some swelling underneath the right eye. Please apply warm compresses to your cheek, but do not squeeze at or pick at the spot. You may take Tylenol and ibuprofen for discomfort, and if you are having itching you can also take Benadryl. Take the prescribed antibiotic for the infection, and if you are having worsening swelling, redness, or vision changes, please return to the emergency department. Discharge Date/Time: 09/04/19 16:37
== END 2019-09-04 16:37 | disposition home or self-care (01) ==
LOC: ED 15:47
DX: L03.211 Cellulitis of face (principal); F17.200 Nicotine dependence, unspecified, uncomplicated
CPT/HCPCS: 99282; 99284; A9270